=== PATIENT | male | born 1990 | race Caucasian/White ===

== ENCOUNTER 2019-12-21 23:30 | Inpatient (IN) | payer OTHER, SELFPAY ==
[2019-12-21] VITALS (17 sets, daily range): BP systolic 107–134; BP diastolic 64–88; PULSE 69–94; RESP 14–20; TEMP 36.6–37.6; O2SAT 93–97; BMI 28.3
--- NOTE | 2019-12-21 | CT_ITS ---
EXAMINATION: CT LUMBAR SPINE WITHOUT CONTRAST CLINICAL INFORMATION: Epidural abscess COMPARISON: None TECHNIQUE: Multidetector volumetric imaging of the lumbar spine performed without IV contrast. Coronal and sagittal reformatted images are obtained and reviewed. This CT examination was performed using dose optimization techniques as appropriate, variously including the following: *Automated exposure control *Adjustment of mA and/or kV according to patient size (this includes techniques or standardized protocols for targeted exams where dose is matched to indication/reason for exam; i.e. extremities or head) *Use of iterative reconstruction technique DLP; 587 mGy-cm FINDINGS: No fracture or subluxation. Vertebral body height and alignment is maintained. The disc spaces are maintained. Broad disc bulges are seen at L4-L5 and L5-S1. Associated hypertrophy of the ligamentum flavum at L4-L5 results in mild narrowing of the spinal canal. No bony neuroforaminal narrowing. Evaluation for an epidural abscess is limited on noncontrast CT. No gross evidence of epidural collection. There is stranding in the superficial soft tissues. At the midline there is a drain in place with gas present within an area of fluid. Lack of IV contrast limits evaluation for rim enhancement of a collection. This area of fluid measures 2.4 x 2.4 x 4.5 cm. This is deep to the skin, and superficial to the paraspinal musculature. Fluid does extend to near the tip of the spinous process. IMPRESSION: 1. Superficial fluid with drain in place. Gas within the area of fluid. Lack of IV contrast limits evaluation of wall enhancement. 2. Small disc bulges at L4-L5 and L5-S1. Mild spinal canal narrowing of L4-L5. 3. Limited evaluation for epidural abscess on this study. MRI is more sensitive.
--- NOTE | 2019-12-21 18:51 | FL_ITS ---
EXAMINATION: XR FLUOROSCOPY CLINICAL INFORMATION: Removal of spinal stimulator. COMPARISON: Previous exam November 2019. TECHNIQUE: Fluoroscopic guidance was provided to Dr. Weber for spinal stimulator removal. Fluoroscopy time 0.2 minutes. Cumulative dose 3.5 mg. Four submitted fluoroscopic images. FINDINGS: Four fluoroscopic images of the lower thoracic spine, lumbar spine and over the iliac crest demonstrate no foreign body. IMPRESSION: Fluoroscopic guidance for spinal stimulator removal.
--- NOTE | 2019-12-21 18:58 | HO.ANESPROP2 ---
[facility] Past Medical History Medical History (Updated 12/21/19 @ 19:05 by Desirae Menezes, RN) Abscess in epidural space of thoracic spine Mild asthma Right knee meniscal tear Spinal cord stimulator dysfunction Wound infection Surgical History Surgical History (Updated 12/21/19 @ 19:05 by Desirae Menezes, RN) Kwesi's fracture History of appendectomy History of back surgery History of incisional hernia repair Status post lumbar microdiscectomy Social History Social History Advance Directives: No Advance Directives Information Provided: No Meds Allergies Allergy/AdvReac Type Severity Reaction Status Date / Time tramadol [TRAMADOL] Allergy Unknown SEIZURE Unverified 12/02/19 19:24 transparent dressing Allergy Unknown Rash Verified 12/21/19 18:52 [Tegaderm] Home Medications Medication Instructions Recorded Confirmed Type cephalexin 500 mg capsule 1,000 mg PO Q6H 12/18/19 12/21/19 History escitalopram oxalate 5 mg tablet 5 mg PO DAILY 12/18/19 12/21/19 History hydroxyzine HCl 25 mg tablet 25 mg PO TID 12/18/19 12/21/19 History hydroxyzine HCl 50 mg tablet 50 mg PO TID 12/18/19 12/21/19 History oxycodone-acetaminophen 5 mg-325 1 tab PO QID PRN 12/18/19 12/21/19 History mg tablet paroxetine HCl 20 mg tablet 20 mg PO DAILY 12/18/19 12/21/19 History prednisone 50 mg tablet 50 mg PO DAILY 12/18/19 12/21/19 History sertraline 25 mg tablet 25 mg PO DAILY 12/18/19 12/21/19 History Exam Exam Date and Time: December 21, 2019 185 Height,Weight and Vital Signs: Height 6 ft 1 in Weight 97.522 kg Airway Mallampati Class: I TM Dist: >3cm Neck ROM: Full Heart: RRR Lungs: Cta Assessment and Plan Assessment Anesthesia Assessment: Anesthesia Plan Discussed Final Anesthetic Review NPO: Yes ASA Class: II Final Preanesthetic Review: No Changes in Pt Med Stat, Meds/Allgs Chart Reviewed, Consent Obtained/Reviewed and Anes Risks/Benef Reviewed Patient Risk: Low Procedure Risk: Low Anesthetic Plan Anesthetic Plan: GA Disposition: Standard PACU
[2019-12-21] MEDS: Lactated Ringers 1,000 ML 50 ML IVCONT (19:24)
[2019-12-21] MEDS: DAPTOmycin 500 MG/10 ML VIAL 400 MG IV (21:49)
[2019-12-21] MEDS: HYDROmorphone HCl 0.5 MG/0.5 ML SYRINGE IVPUSH ×2 (21:59→22:12)
[2019-12-21] MEDS: fentaNYL citrate/PF 100 MCG/2 ML VIAL 50 MCG IVPUSH (22:22)
[2019-12-21] MEDS: oxyCODONE HCl Immed Release 5 MG TABLET PO (22:33)
--- NOTE | 2019-12-21 23:11 | PC.NURSE ---
[address] scan via stretcher with cardiac cath rn O2 sat and [address]
[2019-12-21 23:15] LABS: MANUAL DIFF FLAG NO
[2019-12-21 23:17] LABS: Basophils Absolute Auto 0.1 X10*3/uL (0.0-0.2); Basophils Percent Auto 0.9 % (0-2); Eosinophils Absolute Auto 0.2 X10*3/uL (0.0-0.4); Eosinophils Percent Auto 3.3 % (0-4); Hematocrit 37.4 % (42-52); Hemoglobin 13.3 g/dl (14.0-18.0); Imm Gran Abs Auto 0.02 X10*3/uL (0.00-0.03); Imm Gran Pct Auto 0.3 % (0.0-0.4); Lymphocytes Absolute Auto 1.9 X10*3/uL (1.2-4.9); Lymphocytes Percent Auto 30.2 % (20-40); Mean Corpuscular HGB Conc 35.6 g/dl (31.0-36.0); Mean Corpuscular Hemoglobin 31.1 pg (27.0-33.0); Mean Corpuscular Volume 87.6 fL (80-98); Mean Platelet Volume 9.8 fL (9.4-12.4); Monocytes Absolute Auto 0.5 X10*3/uL (0.1-1.2); Monocytes Percent Auto 8.4 % (2-11); Neutrophils Absolute Auto 3.7 X10*3/uL (2.0-8.3); Neutrophils Percent Auto 56.9 % (45-73); Platelet Count 217 X10*3/uL (160-400); Red Blood Count 4.27 X10*6/uL (4.60-5.80); Red Cell Distribution Width 11.3 % (11.0-16.0); White Blood Count 6.4 X10*3/uL (4.8-10.8)
--- NOTE | 2019-12-22 | CT_ITS ---
EXAMINATION: CT THORACIC SPINE CLINICAL INFORMATION: Post removal of lpn medical assistant. Evaluate for abscess. COMPARISON: Previous fluoroscopic exam 11/26/2019 and 12/21/2019 TECHNIQUE: Axial images through the thoracic spine following 85 mL of Omnipaque 350 intravenous contrast. Sagittal and coronal re-tractions on the technologist workstation were performed. Patient dose 108 3 mg/cm. This CT examination was performed using dose optimization techniques as appropriate, variously including the following: *Automated exposure control *Adjustment of mA and/or kV according to patient size (this includes techniques or standardized protocols for targeted exams where dose is matched to indication/reason for exam; i.e. extremities or head) *Use of iterative reconstruction technique DLP: 1083 mGy-cm FINDINGS: Bone alignment is normal. No fracture or dislocation is seen. No x-ray evidence of osteomyelitis is seen. No disc herniation is seen. No evidence of an epidural abscess is seen. There is a drain in the subcutaneous fat adjacent to the L2 and L3 spinous process. There is a small amount of fluid and air. This is similar to lumbar spine CT from yesterday. There is elevation of the right hemidiaphragm. There is subsegmental atelectasis in the right upper lobe. Paraspinal soft tissues are otherwise unremarkable. IMPRESSION: No abscess seen. Stable appearance to the superficial fluid collection and drain adjacent to the L2 and L3 spinous process.
[2019-12-22 00:02] VITALS: BP 130/80; PULSE 70; RESP 20; TEMP 36.7; O2SAT 95
--- NOTE | 2019-12-22 00:17 | P.HPIM_ITS ---
History of Present Illness Date of Service: 12/21/19 Chief Complaint: Infected spinal cord stimulator 29 y/o male with PMHx of pain related to degenerative disc disease and post- laminectomy syndrome who presented from home due to pain of spinal cord stimulator implantation site pain. On 11/25 patient reports that had implantation of spinal cord stimulator for chronic pain due to generative disc and since then everything was okay until on recent days when started experiencing bulging, discharge and pain from implantation site. Patient denies any chest pain, SOB, nausea, vomiting or fever. Patient contacted Surgeon Dr Weber who recommneded for spinal cord stimulator to be removed in the OR today at 7 pm given infection. Patient on evaluation by surgery did not present with any evidence of neurologic deficit, spinal cord stimulator was removed successfully. CT was done for evaluation of spinal canal which did not elucidate any specific finding concerning for epidural absces/canal involvement for what MRI was recommended. Medicine was called for direct admission to medical floor. Patient was seen and evaluated in IMC after transferred. Patient laying down in bed in no acute distress. ROS as above otherwise negative. Physical exam showing bandage on surgery site, rest of the exam unremarkable. No neurologic deficit indentified at present. PMHX: degenerative disc, post laminectomy and spinal cord stimulator PSx: as above Toxic habits: gives no hx of alcohol abuse, smoking or IVDA Review of Systems Musculoskeletal: Musculoskeletal: Reports back pain Integumentary/Breasts: Skin/Breast: Reports other (open wound with drainage and buldging of skin ) PMFSH Medical History Abscess in epidural space of thoracic spine Mild asthma Right knee meniscal tear Spinal cord stimulator dysfunction Wound infection Functional capacity: independent ambulation Family history: reviewed and not pertinent Surgical History Boxer's fracture History of appendectomy History of back surgery History of incisional hernia repair Status post lumbar microdiscectomy Social History Household Members: Spouse and Children Housing: House Do you presently have visiting nurse or other home services: No Smoking Status: Former smoker Smoked in Last 30 Days: No Use of substances other than those prescribed or required for medical reasons: No Have you been hit, kicked, punched, or otherwise hurt by someone within the past year? If so, by whom?: No Do you feel safe in your current relationship?: No Is there a partner from a previous relationship who is making you feel unsafe now?: No Are you made to feel afraid or neglected: No Advance Directives: No Advance Directives Information Provided: No Advance Directives on File: No Do you have thoughts of harming others: None Recently lost weight without trying: No Meds Allergies Allergy/AdvReac Type Severity Reaction Status Date / Time tramadol [TRAMADOL] Allergy Unknown SEIZURE Verified 12/21/19 19:23 transparent dressing Allergy Unknown Rash Verified 12/21/19 18:52 [Tegaderm] Home Medications Medication Instructions Recorded Confirmed Type cephalexin 500 mg capsule 1,000 mg PO Q6H 12/18/19 12/21/19 History escitalopram oxalate 5 mg tablet 5 mg PO DAILY 12/18/19 12/21/19 History hydroxyzine HCl 25 mg tablet 25 mg PO TID 12/18/19 12/21/19 History hydroxyzine HCl 50 mg tablet 50 mg PO TID 12/18/19 12/21/19 History oxycodone-acetaminophen 5 mg-325 1 tab PO QID PRN 12/18/19 12/21/19 History mg tablet paroxetine HCl 20 mg tablet 20 mg PO DAILY 12/18/19 12/21/19 History prednisone 50 mg tablet 50 mg PO DAILY 12/18/19 12/21/19 History sertraline 25 mg tablet 25 mg PO DAILY 12/18/19 12/21/19 History Physical Exam Vital Signs and Narrative: Vital Signs: Last Vital Signs Temp 98.7 F 12/21/19 23:05 Pulse 76 12/21/19 23:35 Resp 16 12/21/19 23:35 BP 124/82 12/21/19 23:35 Pulse Ox 96 12/21/19 23:35 Body Mass Index 28.3 Results Labs Labs: Laboratory Tests 12/21/19 23:11 WBC 6.4 RBC 4.27 L Hgb 13.3 L Hct 37.4 L MCV 87.6 MCH 31.1 MCHC 35.6 RDW 11.3 Plt Count 217 MPV 9.8 Immature Gran % (Auto) 0.3 Neut % (Auto) 56.9 Lymph % (Auto) 30.2 [place] % (Auto) 8.4 Eos % (Auto) 3.3 Baso % (Auto) 0.9 Neut # (Auto) 3.7 Lymph # (Auto) 1.9 [place] # (Auto) 0.5 Eos # (Auto) 0.2 Baso # (Auto) 0.1 Abs Immat Gran (auto) 0.02 Absolute Nucleated RBC 0.000 Nucleated RBC % (auto) 0.0 Assessment and Plan (1) Infection of spinal cord stimulator: Status: Acute s/p removal of infected spinal cord stimulator Pain control regular diet sequential compression devices LE for DVT ppx Continue with Daptomycin as recommended by Dr Weber General surgery for follow up after device removal
[2019-12-22] MEDS: HYDROmorphone HCl 0.5 MG/0.5 ML SYRINGE IVPUSH ×2 (01:54→05:48)
[2019-12-22] MEDS: Flu Vacc QS2020-21(6mos up)/PF 0.5 ML SYRINGE IM (01:55)
[2019-12-22] MEDS: 0.9 % Sodium Chloride Flush 3 ML SYRINGE 2 ML IVFLUSH ×3 (01:56→23:56)
[2019-12-22 04:00] VITALS: BP 115/63; PULSE 69; RESP 18; TEMP 36.6; O2SAT 95
[2019-12-22 06:37] LABS: MANUAL DIFF FLAG NO
[2019-12-22 06:51] LABS: Basophils Absolute Auto 0.1 X10*3/uL (0.0-0.2); Basophils Percent Auto 1.2 % (0-2); Eosinophils Absolute Auto 0.3 X10*3/uL (0.0-0.4); Eosinophils Percent Auto 4.3 % (0-4); Hematocrit 35.6 % (42-52); Hemoglobin 12.8 g/dl (14.0-18.0); Imm Gran Abs Auto 0.03 X10*3/uL (0.00-0.03); Imm Gran Pct Auto 0.4 % (0.0-0.4); Lymphocytes Absolute Auto 2.4 X10*3/uL (1.2-4.9); Mean Corpuscular Hemoglobin 31.4 pg (27.0-33.0); Mean Corpuscular Volume 87.5 fL (80-98); Mean Platelet Volume 10.5 fL (9.4-12.4); Monocytes Absolute Auto 0.7 X10*3/uL (0.1-1.2); Monocytes Percent Auto 9.1 % (2-11); Platelet Count 226 X10*3/uL (160-400); Red Blood Count 4.07 X10*6/uL (4.60-5.80); Red Cell Distribution Width 11.2 % (11.0-16.0); White Blood Count 7.5 X10*3/uL (4.8-10.8)
[2019-12-22 07:20] LABS: Anion Gap 11 (12-20); Blood Urea Nitrogen 18 mg/dL (9-16); Calcium 8.6 mg/dL (8.4-10.2); Carbon Dioxide 26 mmol/L (22-29); Chloride 106 mmol/L (96-108); Creatinine Clr Calc Pharmacy 135.4; Estimated Glomerular Filt Rate > 60; Glucose Random 86 mg/dL (60-115); Potassium 3.6 mmol/l (3.3-5.1); Sodium 139 mmol/L (135-145)
[2019-12-22 07:46] VITALS: BP 107/59; PULSE 70; RESP 18; TEMP 36.6; O2SAT 97
--- NOTE | 2019-12-22 09:32 | MHC.CM.PN ---
CM met with patient at the bedside who reports he is independent and lives with his S.O. Patient does not have a HCP and declines to fill one out today. Discussed discharge plan, home no services. S.O. will provide transportation. CM will continue to follow patient for discharge needs.
[2019-12-22] MEDS: Morphine Sulfate 2 MG/ML CARTRIDGE IVPUSH ×3 (10:22→21:37)
[2019-12-22] MEDS: iohexoL 350 MG/ML 100 ML INFUS..BTL IV (11:21)
[2019-12-22 11:42] VITALS: BP 113/71; PULSE 79; RESP 18; TEMP 36.6; O2SAT 98
[2019-12-22] MEDS: oxyCODONE HCl Immed Release 5 MG TABLET PO ×3 (12:21→22:28)
--- NOTE | 2019-12-22 13:55 | P.CNID_ITS ---
History of Present Illness Data of Consult Primary Care Provider: Elfego Hernández MD I am seeing patient on 12/21 He presents to hospital after back discomfort He has h/o chronic back pain post laminectomy DJD On 11/25 he received spinal cord stimulator He did well except for pain until 12/08 when noticed incision reopened He started to have serosanguinous drainage over next week and came to ER He has no fever or chills at this time and no purulence Review of Systems Review of Systems: Yes all other systems are reviewed and are negative Constitutional: Constitutional: Denies frequent falls and Reports weakness Musculoskeletal: Musculoskeletal: Denies numbness and Denies tingling Neurologic: Denies confusion, Denies frequent falls, Denies memory loss, Denies numbness, Reports radicular pain, Denies seizure-like activity, Denies tingling, Denies paresthesias, Denies tremor(s) and Reports weakness Psychiatric: Psychiatric: Denies confusion and Denies memory loss PMFSH Past Medical History Medical History Abscess in epidural space of thoracic spine Mild asthma Right knee meniscal tear Spinal cord stimulator dysfunction Wound infection Functional capacity: independent ambulation Family History Family history: reviewed and not pertinent Surgical History Surgical History Boxer's fracture History of appendectomy History of back surgery History of incisional hernia repair Status post lumbar microdiscectomy Social History Social History Household Members: Spouse and Children Housing: House Do you presently have visiting nurse or other home services: No Smoking Status: Former smoker Smoked in Last 30 Days: No Use of substances other than those prescribed or required for medical reasons: No Have you been hit, kicked, punched, or otherwise hurt by someone within the past year? If so, by whom?: No Do you feel safe in your current relationship?: No Is there a partner from a previous relationship who is making you feel unsafe now?: No Are you made to feel afraid or neglected: No Advance Directives: No Advance Directives Information Provided: No Advance Directives on File: No Do you have thoughts of harming others: None Recently lost weight without trying: No service: No Current occupational status: unemployed Meds Allergies Allergy/AdvReac Type Severity Reaction Status Date / Time tramadol [TRAMADOL] Allergy Unknown SEIZURE Verified 12/21/19 19:23 transparent dressing Allergy Unknown Rash Verified 12/21/19 18:52 [Tegaderm] Home Medications Medication Instructions Recorded Confirmed Type cephalexin 500 mg capsule 1,000 mg PO Q6H 12/18/19 12/22/19 History escitalopram oxalate 5 mg tablet 5 mg PO DAILY 12/18/19 12/22/19 History hydroxyzine HCl 25 mg tablet 25 mg PO TID 12/18/19 12/22/19 History hydroxyzine HCl 50 mg tablet 50 mg PO TID 12/18/19 12/22/19 History oxycodone-acetaminophen 5 mg-325 1 tab PO QID PRN 12/18/19 12/22/19 History mg tablet paroxetine HCl 20 mg tablet 20 mg PO DAILY 12/18/19 12/22/19 History prednisone 50 mg tablet 50 mg PO DAILY 12/18/19 12/22/19 History sertraline 25 mg tablet 25 mg PO DAILY 12/18/19 12/22/19 History Physical Exam Vital Signs and I&O and Narrative: Vital Signs and I&O: Vital Signs Temp 97.9 F 12/22/19 11:42 Pulse 79 12/22/19 11:42 Resp 18 12/22/19 11:42 BP 113/71 12/22/19 11:42 Pulse Ox 98 12/22/19 11:42 Intake & Output 12/21/19 12/22/19 12/22/19 18:59 06:59 18:59 Intake Total 750 / 750 180 / 180 Output Total 5 / 5 Balance 745 / 745 180 / 180 Urine Output (Aver age ml/kg/hr) 0.00 0.00 Weight 215 lb Intake: Intake, Oral [place] unt 300 / 300 180 / 180 Intake, Other Am ount 350 / 350 Intake, IV Amoun t 100 / 100 Acetaminophen 1,000 mg In 100 100 / 100 ml @ 400 mls/h r IV ONCE ONE Rx# :[id number] Output: Output, Urine Am ount 0 / 0 Output, Tube [place] unt 5 / 5 PEREZ Drain 5 / 5 Other: NPO Yes Breakfast % Eate n 50% Current Medications Generic Name Dose Route Start Last Admin Trade Name Freq PRN Reason Stop Dose Admin Lactated Ringer's 1,000 mls @ 50 ml s/hr 12/21/19 19:15 12/21/19 19:24 Lr IVCONT 50 mls/hr .Q20H PRANAV Administration Daptomycin 390.088 mg/ Sodium 57.8018 mls @ 100 mls/hr 12/22/19 19:00 Chloride IV Q24H PRANAV Morphine Sulfate 2 mg 12/22/19 09:58 12/22/19 10:22 Morphine Sulfate 2 Mg/Ml Cartridge IVPUSH 2 mg Q4H PRN Administration Pain and Fever Ondansetron HCl 4 mg 12/21/19 19:02 Ondansetron Hcl 4 Mg/2 Ml Vial IVPUSH ONCE PRN Nausea and Vomiti ng Oxycodone HCl 5 mg 12/22/19 11:38 12/22/19 12:21 Oxycodone Hcl Im med Release 5 Mg T ablet PO 5 mg Q4H PRN Administration Pain, Severe (Nate n Scale 7-10) Sodium Chloride 2 ml 12/22/19 08:00 12/22/19 01:56 0.9 % Sodium Chl oride Flush 3 Ml S yringe IVFLUSH 2 ml QSHIFT PRANAV Administration Body Mass Index 28.3 Const: General: No confusion Orientation/consciousness: No confusion HENMT: Head: Yes normal to inspection Eyes: General: appearance normal, both eyes and all related structures Resp: Effort & Inspection: normal respiratory effort Cardio: Rate: regular rate Rhythm: regular rhythm GI: Inspection: Yes normal to inspection Percussion: Yes normal to percussion Back/Spine/Pelvis: Back/spine/pelvis image: 1. serosanguinous drainage with drain Neuro: General: No confusion Assessment and Plan (1) Epidural abscess: Problem details: There is serosanguinous drainage and need to culture see if abscess Status: Acute (2) Infection of spinal cord stimulator: Problem details: There appears to be dehiscence area and drain Patient is tolerating Daptomycin well Status: Acute Would switch to po Minocycline There are no wound cultures available and CT LS spine shows no osteomyelitis so would give po Minocycline for 14 days cover staph and strep If area fails to heal, schedule open MRI evaluate osteomyelitis as outpatient Patient is claustrophobic and declines MRI at this time (3) Post-operative wound abscess: Status: Acute (4) Wound infection: Status: Acute
--- NOTE | 2019-12-22 15:24 | HO.PM.IMPN ---
Subjective Subjective Date of Service: 12/22/19 Interval History: Seen in follow up for concern of epidural abscess from an implanted neurostimulator. He underwent emergent surgical removal of the device yesterday and has a drain in place with serosanguinuous drainage. Has not have fever or chils and WBC are nomra. He says he has some chronic numbnes of right lower extremity for years that has not change and perhaps may have some numbness on the left but nearly gone since removal of device overnight. He has no urniary or stool incontinence, he is ambulating without any difficulty Review of Systems Gen:No fever CV: no ches pain Resp: no fever Neuro: no weakness, no numbness, no urinary or stool incontinence Physical Exam Vital Signs and I&O and Narrative: Vital Signs and I&O: Vital Signs Temp 97.9 F 12/22/19 11:42 Pulse 79 12/22/19 11:42 Resp 18 12/22/19 11:42 BP 113/71 12/22/19 11:42 Pulse Ox 98 12/22/19 11:42 Intake & Output 12/21/19 12/22/19 12/22/19 18:59 06:59 18:59 Intake Total 750 / 750 400 / 400 Output Total 5 / 5 400 / 400 Balance 745 / 745 0 / 0 Urine Output (Aver age ml/kg/hr) 0.00 0.34 Weight 97.522 kg Intake: Intake, Oral [place] unt 300 / 300 400 / 400 Intake, Other Am ount 350 / 350 Intake, IV Amoun t 100 / 100 Acetaminophen 1,000 mg In 100 100 / 100 ml @ 400 mls/h r IV ONCE ONE Rx# :[id number] Output: Output, Urine Am ount 0 / 0 400 / 400 Output, Tube [place] unt 5 / 5 PEREZ Drain 5 / 5 Other: NPO Yes Breakfast % Eate n 50% Lunch % Eaten 75% Urine Bathroom Body Mass Index 28.3 Constitutional Awake and Alert, No apparent distress, no distress Neck Supple, No lymphadenopathy Cardiovascular RRR, Resp normal lung expansion, no respiratory effort Gastrointestinal Non tender, Non-distended Skin No rash, the wounds in back were examined. suttures in place wound looks clean with drain in place, no surrounding erythema Neurological Alert & oriented x3, he has normal strenght in upper and lower extremity, no tingle in legs, no hypereflexia, normal coordination, and normal gait Psychological Appropriate affect Objective Data Current Medications Generic Name Dose Route Start Last Admin Trade Name Freq PRN Reason Stop Dose Admin Lactated Ringer's 1,000 mls @ 50 mls/hr 12/21/19 19:15 12/21/19 19:24 Lr IVCONT 50 mls/hr .Q20H [facility] Administration Daptomycin 585 mg/ Sodium 61.7 mls @ 123.4 mls/hr 12/22/19 20:00 Chloride IV Q24H [facility] Morphine Sulfate 2 mg 12/22/19 09:58 12/22/19 14:54 Morphine Sulfate 2 Mg/Ml Cartridge IVPUSH 2 mg Q4H PRN Administration Pain and Fever Ondansetron HCl 4 mg 12/21/19 19:02 Ondansetron Hcl 4 Mg/2 Ml Vial IVPUSH ONCE PRN Nausea and Vomiting Oxycodone HCl 5 mg 12/22/19 11:38 12/22/19 12:21 Oxycodone Hcl Immed Release 5 Mg Tablet PO 5 mg Q4H PRN Administration Pain, Severe (Pain Scale 7-10) Sodium Chloride 2 ml 12/22/19 08:00 12/22/19 01:56 0.9 % Sodium Chloride Flush 3 Ml Syringe IVFLUSH 2 ml QSHIFT [facility] Administration Labs CBC & Chem 7: 12/22/19 05:51 12/22/19 05:51 Labs: Laboratory Results - last 24 hr 12/21/19 12/22/19 12/22/19 23:11 05:51 05:51 MCV 87.6 87.5 MCH 31.1 31.4 MCHC 35.6 36.0 RDW 11.3 11.2 Plt Count 217 226 MPV 9.8 10.5 Immature Gran % (Auto) 0.3 0.4 Neut % (Auto) 56.9 53.0 Lymph % (Auto) 30.2 32.0 [place] % (Auto) 8.4 9.1 Eos % (Auto) 3.3 4.3 H Baso % (Auto) 0.9 1.2 Neut # (Auto) 3.7 4.0 Lymph # (Auto) 1.9 2.4 [place] # (Auto) 0.5 0.7 Eos # (Auto) 0.2 0.3 Baso # (Auto) 0.1 0.1 Abs Immat Gran (auto) 0.02 0.03 Absolute Nucleated RBC 0.000 0.000 Nucleated RBC % (auto) 0.0 0.0 Anion Gap 11 L Estim Creat Clear Calc 135.4 Estimated GFR > 60 Random Glucose 86 Calcium 8.6 Microbiology Microbiology Results: Microbiology 12/21/19 20:47 Not Given, Tbd - Other Routine Culture - Preliminary Culture too young to evaluate. 12/21/19 20:42 Not Given, Tbd - Other Routine Culture - Preliminary No growth to date. 12/21/19 16:00 Incision Routine Culture - Preliminary Culture too young to evaluate. Assessment and Plan (1) Infection of spinal cord stimulator: Problem details: There appears to be dehiscence area and drain Patient is tolerating Daptomycin well Status: Acute (2) Post-operative wound abscess: Status: Acute (3) Abscess in epidural space of thoracic spine: Status: Acute Assessment and Plan: 29 year male with chronic back who has a recent Spinal cord Simulator inserted presented post operative wound infection and concern for epidural abscess and s/p removal of the spinal cord stimulator and battery. He is clinically doing better. Has no feve or increase in WBC, his neuro exam is uremarkable including abscence of tingling he had yesterday. CT of back shows no evidence of abscess. We proposed MRI further evaluation but he relates that he cannot tolerate MRI even with sedation and infact would not be open for open MRI..She is on Daptomycin and will add Minocyline that he maybe able to go home with later per ID guidance
[2019-12-22 16:00] VITALS: BP 111/62; PULSE 70; RESP 18; TEMP 36.9; O2SAT 100
--- NOTE | 2019-12-22 17:51 | P.OP_ITS ---
Operative Note Operative Note Narrative: Dusty is very pleasant 29 years old gentleman who is under care in my office for Complex regional pain syndrome of right lower extremity. He underwent implantation of the spinal cord stimulator [employer] to to treat this condition. In postoperative time he developed inflammation surrounding his battery site , severe pain in the projection of the battery site redness and swelling in the projection of the battery side. He also reported inflammation and some minimal discharge from the midline epidural lead incisions later on on 12/21/2019. At the same time he reported severe pain in the projections of both incisions, severe tenderness on palpation, and on December 22 2019 he reported weakness in tingling sensation in bilateral lower extremities. Epidural involvement in the inflammation was suspected. Epidural abscess diagnosis was entered as a tentative diagnosis for this patient. The decision was made to take the patient to the operating room for removal of the battery and epidural leads. Informed consent was obtained for the procedure before surgery and all the risks and benefits were explained to the patient. All the questions were answered. HE was brought to the operating room and positioned supine on the stretcher.General anesthesia was induced and the patient was inserted with LMA. he was positioned prone on the operating table, all pressure points were protected, padded. Time out was performed delineation correct patient with identifier, correct site and side of the surgery, risk of fire, needs for antibiotics and DVT prophylactics. After that the patient entire back was prepped with chloroprep twice and draped with fool body drape including ioban film. Sterilely drape C-arm was brought over the OR field and square pictures of the L1, L2, L3 vertebrae were demonstrated on the screen, the positions of the patient SCS leads were noted. After that the incision was performed in the projection of the previously healed midline incision scar. Thorough hemostasis was obtained and wheatlander wound retractor was applied. The location of previously position anchors containing epidural leads was palpated through the tissues. C-arm was used to locate Left-sided lead. The leads were freed from surrounding tissues using dull dissection with hemostat a and sharp dissection with Metzenbaum scissors. The anchoring sutures were severed and epidural leads were slowly delivered from the epidural space to the midline incision. The tips of the leads were severed from the rest of the lead and were sent for culture. Previously applied wound closure materials including all the sutures were carefully removed from the wound. Thorough irrigation of the wound was performed and wound was packed with normal saline soaked 4x4s. After that attention was concentrated on the left-sided incision where a scalpel was used to open up the side pocket the battery was located in the pocket. The battery was removed after severing the anchoring sutures. Irrigation was performed and Jordan-Rosenbaum drain was inserted into the pocket wound. Previously applied suture materials were carefully removed from the wound. The Pastor drain was inserted into the midline incision. 0 silk vertical mattress sutures were applied to midline incision and rare thom were applied as well. The same closure was performed for left-sided incision. The Jordan-Rosenbaum drain was fixed with the nylon suture 2-[address] to the [address]. sterile dr essings was applied with hypo allergenic tape. Upon completion of the procedure the patient was awaken and extubated. He was taking to the PACU for recovery he was admitted to the hospital for hospitalist care. He received Cubicin 400 mg intravenously for potential epidural abscess prophylaxis. He was also scheduled to have a CT scan with contrast of the thoracic spine. He will be consulted by infectious Diseases specialist. The cultures will be evaluated as well. Postoperative diagnosis still includes differential options of indolent infection versus titanium and/or suture material allergy. He will be under neuro check while in the hospital.
[2019-12-22 20:00] VITALS: BP 110/59; PULSE 79; RESP 18; TEMP 36.4; O2SAT 98
[2019-12-22] MEDS: Acetaminophen 325 MG TABLET 650 MG PO (23:54)
[2019-12-23] VITALS (8 sets, daily range): BP systolic 99–134; BP diastolic 50–79; PULSE 60–113; RESP 16–18; TEMP 35.9–37.1; O2SAT 95–98
[2019-12-23] MEDS: Morphine Sulfate 2 MG/ML CARTRIDGE IVPUSH ×3 (03:20→23:52)
[2019-12-23] MEDS: oxyCODONE HCl Immed Release 5 MG TABLET PO ×3 (05:08→20:34)
[2019-12-23] MEDS: 0.9 % Sodium Chloride Flush 3 ML SYRINGE 2 ML IVFLUSH ×3 (08:27→23:42)
--- NOTE | 2019-12-23 13:53 | P.PNIM_ITS ---
Subjective Subjective Date of Service: 12/23/19 Interval History: Seen in follow up for concern of epidural wound infection from an implanted neurostimulator. He underwent emergent surgical removal of the device on 12/20 and has a drain in place with serosanguinuous drainage. Has not have fever or chils and WBC are normal. He says he has some chronic numbnes of right lower extremity for years that has not change and perhaps may have some numbness on the left but nearly gone since removal of device . He has no urniary or stool incontinence, he is ambulating without any difficulty. Wound culture is growing Staph Aurues, sensitivity pending Review of Systems Card: no chest pain GI: No n/v Muscular/sk: No back pain Neuro: no weakness, no new numbness Physical Exam Vital Signs and I&O and Narrative: Vital Signs and I&O: Vital Signs Temp 97.5 F 12/23/19 11:19 Pulse 70 12/23/19 11:19 Resp 16 12/23/19 11:19 BP 107/56 L 12/23/19 11:19 Pulse Ox 95 12/23/19 11:19 Intake & Output 12/22/19 12/23/19 12/23/19 18:59 06:59 18:59 Intake Total 400 / 2041.7 1641.7 / 2041.7 Output Total 400 / 660 260 / 660 Balance 0 / 1381.7 1381.7 / 1381.7 Urine Output (Aver age ml/kg/hr) 0.34 0.21 Intake: Intake, Oral Jian unt 400 / 980 580 / 980 Intake, IV Amoun t 1061.7 / 1061.7 DAPTOmycin 585 mg In 0.9 % 61.7 / 61.7 Sodium Chlorid e 50 ml @ 123.4 mls/hr IV Q24H [facility] Rx#: [id number] Lactated Ringe rs 1,000 ml @ 50 1000 / 1000 mls/hr IVCONT .Q20H [facility] Rx#: [id number] Output: Output, Urine Am ount 400 / 650 250 / 650 Output, Tube [place] unt PEREZ Drain Other: Breakfast % Eate n 50% Lunch % Eaten 75% Urine Bathroom Bathroom Urine Color Yellow Body Mass Index 28.3 Constitutional Awake and Alert, No apparent distress, no distress Neck Supple, No lymphadenopathy Cardiovascular RRR, Resp normal lung expansion, no respiratory effort Gastrointestinal Non tender, Non-distended Skin No rash, the wounds in back were examined. suttures in place wound looks clean with drain in place, no surrounding erythema Neurological Alert & oriented x3, he has normal strenght in upper and lower extremity, no tingle in legs, no hypereflexia, normal coordination, and normal gait Psychological Appropriate affect Objective Data Current Medications Generic Name Dose Route Start Last Admin Trade Name Selvinq PRN Reason Stop Dose Admin Doxycycline Hyclate 100 mg 12/22/19 23:00 12/23/19 08:25 Doxycycline Hyclate 100 Mg Tablet PO 100 mg BID [facility] Administration Lactated Ringer's 1,000 mls @ 50 mls/hr 12/21/19 19:15 12/23/19 13:09 Lr IVCONT Not Given .Q20H [facility] Daptomycin 585 mg/ Sodium 61.7 mls @ 123.4 mls/hr 12/22/19 20:00 12/22/19 22:07 Chloride IV Infused Q24H [facility] Infusion Vancomycin HCl 1,000 mg/ 270 mls @ 180 mls/hr 12/23/19 14:00 Sodium Chloride IV Q12H [facility] Morphine Sulfate 2 mg 12/22/19 09:58 12/23/19 08:24 Morphine Sulfate 2 Mg/Ml Cartridge IVPUSH 2 mg Q4H PRN Administration Pain and Fever Ondansetron HCl 4 mg 12/21/19 19:02 Ondansetron Hcl 4 Mg/2 Ml Vial IVPUSH ONCE PRN Nausea and Vomiting Oxycodone HCl 5 mg 12/22/19 11:38 12/23/19 10:40 Oxycodone Hcl Immed Release 5 Mg Tablet PO 5 mg Q4H PRN Administration Pain, Severe (Pain Scale 7-10) Sodium Chloride 2 ml 12/22/19 08:00 12/23/19 08:27 0.9 % Sodium Chloride Flush 3 Ml Syringe IVFLUSH 2 ml QSHIFT [facility] Administration Labs CBC & Chem 7: 12/22/19 05:51 12/22/19 05:51 Microbiology Microbiology Results: Microbiology 12/21/19 20:42 Not Given, Tbd - Other Gram Stain - Final 12/21/19 20:42 Not Given, Tbd - Other Routine Culture - Final No growth after 2 days 12/21/19 16:00 Incision Gram Stain - Final 12/21/19 16:00 Incision Routine Culture - Preliminary Staphylococcus aureus 12/21/19 20:47 Not Given, Tbd - Other Routine Culture - Preliminary Staphylococcus aureus Assessment and Plan (1) Infection of spinal cord stimulator: Problem details: There appears to be dehiscence area and drain Patient is tolerating Daptomycin well Status: Acute (2) Post-operative wound abscess: Status: Acute (3) Abscess in epidural space of thoracic spine: Status: Acute Assessment and Plan: 29 year male with chronic back who has a recent Spinal cord Simulator inserted around 11/25 presented post operative wound infection and concern for epidural absces and s/p removal of the spinal cord stimulator and battery. Has no feve or increase in WBC, his neuro exam is uremarkable including abscence of tingling he had yesterday. CT of back after surgery showed no evidence of abscess. We proposed MRI for further evaluation but he relates that he cannot tolerate MRI even with sedation and infact would not be open for open MRI. He has been on Daptomycin, culture from battery site in buttocs and wire site in thoracic spine temo growing Staph Aurues, no sensitivity yet. Will continue Daptomycin for now and wait for culture to come back. Surgeon to follow up. At any singn of detelioration MRI with anesthesia sedation should be considered
--- NOTE | 2019-12-23 13:54 | MHC.CM.PN ---
Patient is being discharged home today no services. S.O. will provide transport.
[2019-12-23 16:07] LABS: Vancomycin Trough < 3.0 mcg/mL (10.0-20.0)
[2019-12-23] MEDS: Lactated Ringers 1,000 ML 50 ML IVCONT (22:20)
[2019-12-24] VITALS (9 sets, daily range): BP systolic 102–142; BP diastolic 57–71; PULSE 66–90; RESP 16–19; TEMP 36.4–36.7; O2SAT 95–99
[2019-12-24] MEDS: oxyCODONE HCl Immed Release 5 MG TABLET PO ×4 (00:47→20:37)
[2019-12-24 07:01] LABS: Hemoglobin 14.6 g/dl (14.0-18.0); Mean Corpuscular HGB Conc 34.8 g/dl (31.0-36.0); Mean Corpuscular Hemoglobin 31.1 pg (27.0-33.0); Mean Corpuscular Volume 89.4 fL (80-98); Mean Platelet Volume 10.2 fL (9.4-12.4); Platelet Count 231 X10*3/uL (160-400); Red Cell Distribution Width 11.1 % (11.0-16.0); White Blood Count 8.1 X10*3/uL (4.8-10.8)
[2019-12-24 07:26] LABS: Anion Gap 11 (12-20); Blood Urea Nitrogen 22 mg/dL (9-16); Calcium 9.3 mg/dL (8.4-10.2); Carbon Dioxide 29 mmol/L (22-29); Chloride 104 mmol/L (96-108); Creatinine Clr Calc Pharmacy 131.4; Estimated Glomerular Filt Rate > 60; Glucose Random 94 mg/dL (60-115); Potassium 4.3 mmol/l (3.3-5.1); Sodium 140 mmol/L (135-145)
--- NOTE | 2019-12-24 08:53 | MHC.CM.PN ---
Patient will be discharged home today no services,S[facility]O. will provide transport. Patient's PCP is Dr Jose Lindsey.
--- NOTE | 2019-12-24 10:28 | P.PNIM_ITS ---
Subjective Subjective Date of Service: 12/24/19 Interval History: Seen in follow up for concern of epidural wound infection from an implanted neurostimulator. He underwent emergent surgical removal of the device on 12/20 and has a drain in place with serosanguinuous drainage. Has not have fever or chils and WBC are normal. tip of catheter and wound culture are growing staph Aureus with no sensitivity as of yet. There is no fever. He still has back pain but not worse and radiation. No numbness in the leg, no weakness, no urinary or stool incontinence Review of Systems Gen: no fever Muscular/sk: back pain GI/: no urinary or stool incontinence Neuro: no weakness, no new numbness, no tingle Physical Exam Vital Signs and I&O and Narrative: Vital Signs and I&O: Vital Signs Temp 97.5 F 12/24/19 07:28 Pulse 66 12/24/19 07:28 Resp 18 12/24/19 07:28 BP 106/57 L 12/24/19 07:28 Pulse Ox 97 12/24/19 07:28 Intake & Output 12/23/19 12/24/19 12/24/19 18:59 06:59 18:59 Intake Total 120 / 661.7 541.7 / 661.7 1240 / 1240 Output Total 2 204 202 / 204 Balance 118 / 457.7 339.7 / 457.7 1240 / 1240 Urine Output (Aver age ml/kg/hr) 0.17 0.17 Intake: Intake, Oral Jian unt 120 / 600 480 / 600 240 / 240 Intake, IV Amoun t 61.7 / 61.7 1000 / 1000 DAPTOmycin 585 mg In 0.9 % 61.7 / 61.7 Sodium Chlorid e 50 ml @ 123.4 mls/hr IV Q24H [facility] Rx#: [id number] Lactated Ringe rs 1,000 ml @ 50 1000 / 1000 mls/hr IVCONT .Q20H [facility] Rx#: [id number] Output: Output, Urine Am ount 200 / 200 Output, Tube [place] unt PEREZ Drain Other: Meal Refused No NPO No Breakfast % Eate n 75% Dinner % Eaten 100% Urine Urinal Urine Color Yellow Body Mass Index 28.3 Constitutional Awake and Alert, No apparent distress, no distress Neck Supple, No lymphadenopathy Cardiovascular RRR, Resp normal lung expansion, no respiratory effort Gastrointestinal Non tender, Non-distended Skin No rash, the wounds in back were examined. suttures in place wound looks c lean with drain in place, no surrounding erythema Neurological Alert & oriented x3, he has normal strenght in upper and lower extremity, no tingle in legs, no hypereflexia, normal coordination, and normal gait Psychological Appropriate affect Objective Data Current Medications Generic Name Dose Route Start Last Admin Trade Name Freq PRN Reason Stop Dose Admin Daptomycin 585 mg/ Sodium 61.7 mls @ 123.4 mls/hr 12/23/19 20:00 12/23/19 21:44 Chloride IV Infused Q24H [facility] Infusion Morphine Sulfate 4 mg 12/24/19 08:34 Morphine Sulfate 2 Mg/Ml Cartridge IVPUSH Q4H PRN Pain and Fever Ondansetron HCl 4 mg 12/21/19 19:02 Ondansetron Hcl 4 Mg/2 Ml Vial IVPUSH ONCE PRN Nausea and Vomiting Oxycodone HCl 5 mg 12/22/19 11:38 12/24/19 00:47 Oxycodone Hcl Immed Release 5 Mg Tablet PO 5 mg Q4H PRN Administration Pain, Severe (Pain Scale 7-10) Sodium Chloride 2 ml 12/22/19 08:00 12/23/19 23:42 0.9 % Sodium Chloride Flush 3 Ml Syringe IVFLUSH 2 ml QSHIFT [facility] Administration Labs CBC & Chem 7: 12/24/19 06:04 12/24/19 06:04 Microbiology Microbiology Results: Microbiology 12/21/19 20:47 Not Given, Tbd - Other Gram Stain - Final 12/21/19 20:47 Not Given, Tbd - Other Routine Culture - Preliminary Staphylococcus aureus 12/21/19 16:00 Incision Gram Stain - Final 12/21/19 16:00 Incision Routine Culture - Preliminary Staphylococcus aureus 12/21/19 20:42 Not Given, Tbd - Other Gram Stain - Final 12/21/19 20:42 Not Given, Tbd - Other Routine Culture - Final No growth after 2 days Assessment and Plan (1) Infection of spinal cord stimulator: Problem details: There appears to be dehiscence area and drain Patient is tolerating Daptomycin well Status: Acute (2) Post-operative wound abscess: Status: Acute (3) Abscess in epidural space of thoracic spine: Status: Acute Assessment and Plan: 29 year male with chronic back who has a recent Spinal cord Simulator implanted around 11/25 presented post operative wound infection and concern for epidural absces and s/p removal of the spinal cord stimulator and battery. Has no feve or increase in WBC, his neuro exam is uremarkable including abscence of tingling or weakness in legs. CT of back post op showed no evidence of abscess. We proposed MRI for further evaluation but he relates that he cannot tolerate MRI even with sedation and infact would not be open for open MRI. He has been on Daptomycin. Wound culture and wire tip culture from 12/20 are growing Staph Aureus, sensitivity pending. -Continue IV Daptomycin, follow LFTs -Follow culture sensitivity -ID following -May need repeat Thoracic imaging CT or MR on Friday
[2019-12-24] MEDS: Morphine Sulfate 2 MG/ML CARTRIDGE 4 MG IVPUSH ×3 (10:30→21:12)
[2019-12-24] MEDS: 0.9 % Sodium Chloride Flush 3 ML SYRINGE 2 ML IVFLUSH ×3 (10:31→20:37)
[2019-12-24 11:03] LABS: Alanine Aminotransferase 23 U/L (0-40); Albumin Level 4.4 g/dL (3.5-5.0); Alkaline Phosphatase 63 U/L (39-117); Aspartate Amino Transferase 14 U/L (5-37); Bilirubin Direct 0.2 mg/dL (0.0-0.5); Bilirubin Total 0.7 mg/dL (0.0-1.0); Total Protein 6.8 g/dL (6.5-8.0)
--- NOTE | 2019-12-24 16:53 | PC.NURSE ---
NOTIFIED BY PATIENT THAT QUYEN DRAIN TO MID LOWER BACK FELL OUT. NO DRAINAGE NOTED. SURGEON NOTIFIED, ORDER TO CHANGE DRESSING AND MONITOR FOR ANY DRAINAGE OR NECROTIC TISSUE. DRESSING CHANGED , PATIENT TOLERATED WELL AT THIS TIME DRESSING IS DRY AND INTACT.
--- NOTE | 2019-12-24 16:55 | PM.IDPN ---
Subjective Subjective Date of Service: 12/24/19 Interval History: he feels well and wants to leave Objective Data Labs CBC & Chem 7: 12/25/19 14:46 12/25/19 14:46 Labs: Laboratory Results - last 24 hr 12/24/19 12/24/19 06:04 06:04 WBC 8.1 RBC 4.70 Hgb 14.6 Hct 42.0 MCV 89.4 MCH 31.1 MCHC 34.8 RDW 11.1 Plt Count 231 MPV 10.2 Absolute Nucleated RBC 0.000 Nucleated RBC % (auto) 0.0 Sodium 140 Potassium 4.3 Chloride 104 Carbon Dioxide 29 Anion Gap 11 L BUN 22 H Creatinine 1.02 Estim Creat Clear Calc 131.4 Estimated GFR > 60 Random Glucose 94 Calcium 9.3 Total Bilirubin 0.7 Direct Bilirubin 0.2 AST 14 ALT 23 Alkaline Phosphatase 63 Total Protein 6.8 Albumin 4.4 Microbiology Microbiology Results: Microbiology 12/21/19 20:47 Not Given, Tbd - Other Gram Stain - Final 12/21/19 20:47 Not Given, Tbd - Other Routine Culture - Preliminary Staphylococcus aureus 12/21/19 16:00 Incision Gram Stain - Final 12/21/19 16:00 Incision Routine Culture - Preliminary Staphylococcus aureus 12/21/19 20:42 Not Given, Tbd - Other Gram Stain - Final 12/21/19 20:42 Not Given, Tbd - Other Routine Culture - Final No growth after 2 days Physical Exam Vital Signs and I&O and Narrative: Vital Signs and I&O: Vital Signs Temp 97.7 F 12/24/19 15:53 Pulse 73 12/24/19 15:53 Resp 18 12/24/19 15:53 BP 142/71 H 12/24/19 15:53 Pulse Ox 99 12/24/19 15:53 Intake & Output 12/23/19 12/24/19 12/24/19 18:59 06:59 18:59 Intake Total 120 / 661.7 541.7 / 661.7 1600 / 1600 Output Total 202 / 204 Balance 118 / 457.7 339.7 / 457.7 1600 / 1600 Urine Output (Aver age ml/kg/hr) 0.17 0.17 Intake: Intake, Oral Jian unt 120 / 600 480 / 600 600 / 600 Intake, IV Amoun t 61.7 / 61.7 1000 / 1000 DAPTOmycin 585 mg In 0.9 % 61.7 / 61.7 Sodium Chlorid e 50 ml @ 123.4 mls/hr IV Q24H [facility] Rx#: [id number] Lactated Ringe rs 1,000 ml @ 50 1000 / 1000 mls/hr IVCONT .Q20H [facility] Rx#: [id number] Output: Output, Urine Am ount 200 / 200 Output, Tube [place] unt PERZE Drain Other: Meal Refused No NPO No Breakfast % Eate n 100% Dinner % Eaten 100% Urine Urinal Urine Color Yellow Body Mass Index 28.3 Const: General: healthy appearing Resp: Effort & Inspection: normal respiratory effort Cardio: Rate: regular rate Rhythm: regular rhythm GI: Inspection: Yes normal to inspection
[2019-12-25] VITALS (8 sets, daily range): BP systolic 100–125; BP diastolic 58–75; PULSE 60–93; RESP 16–18; TEMP 35.6–37.3; O2SAT 95–98
[2019-12-25] MEDS: oxyCODONE HCl Immed Release 5 MG TABLET PO ×2 (06:10→10:17)
[2019-12-25] MEDS: 0.9 % Sodium Chloride Flush 3 ML SYRINGE 2 ML IVFLUSH ×2 (07:30→16:08)
[2019-12-25] MEDS: Morphine Sulfate 2 MG/ML CARTRIDGE 4 MG IVPUSH ×2 (07:37→12:01)
--- NOTE | 2019-12-25 08:31 | MHC.CM.PN ---
Patient has been medically cleared for dc to home today, no services.
[2019-12-25] MEDS: oxyCODONE HCl Immed Release 5 MG TABLET 10 MG PO ×3 (13:38→21:52)
--- NOTE | 2019-12-25 13:38 | PM.IMPN ---
Subjective Subjective Date of Service: 12/25/19 Interval History: seen and examined this AM patient was looking forward to going home. was very upset initially when told that he would need to wait until Friday. Seen multiple times. Gave permission to speak with his fiance, Marixa. D/W After multiple explanations -- understands why he needs to stay denies any leg weakness or numbness changes reports chronic pain but nothing new Review of Systems General - no fevers or chills Cardiovascular - no chest pain Respiratory - no shortness of breath or cough Abdominal- no abdominal pain, nausea, vomiting, diarrhea MSK - no weakness of b/l LE, no numbness; back pain which is not new Physical Exam Vital Signs: Vital Signs: Vital Signs Temp Pulse Resp BP Pulse Ox 12/25/19 12:01 18 12/25/19 11:52 99.2 F 89 18 121/73 95 12/25/19 08:00 97.8 F 82 18 119/74 12/25/19 07:37 18 12/25/19 03:10 96.1 F L 60 18 111/63 12/24/19 23:20 97.8 F 80 18 108/60 97 12/24/19 19:18 98.0 F 87 19 105/59 L 96 12/24/19 15:53 97.7 F 73 18 142/71 H 99 Body Mass Index 28.3 General - no acute distress, appears comfortable Cardiovascular - regular rate and rhythm, S1-S2 Lungs - normal respiratory effort, clear to auscultation bilaterally, no wheezing Abdomen - soft, nontender, no rebound regarding Extremities - no edema bilaterally Neuro - awake and alert, no focal deficits -- strength b/l LE 5/5 and equal; no hyperreflexia Objective Data Current Medications Generic Name Dose Route Start Last Admin Trade Name Freq PRN Reason Stop Dose Admin Daptomycin 585 mg/ Sodium 61.7 mls @ 123.4 mls/hr 12/23/19 20:00 12/24/19 21:13 Chloride IV Infused Q24H [facility] Infusion Ondansetron HCl 4 mg 12/21/19 19:02 Ondansetron Hcl 4 Mg/2 Ml Vial IVPUSH ONCE PRN Nausea and Vomiting Oxycodone HCl 10 mg 12/25/19 13:10 Oxycodone Hcl Immed Release 5 Mg Tablet PO Q4H PRN Pain, Severe (Pain Scale 7-10) Sodium Chloride 2 ml 12/22/19 08:00 12/25/19 07:30 0.9 % Sodium Chloride Flush 3 Ml Syringe IVFLUSH 2 ml QSHIFT [facility] Administration Labs CBC & Chem 7: 12/25/19 14:46 12/25/19 14:46 Microbiology Microbiology Results: Microbiology 12/21/19 20:47 Not Given, Tbd - Other Gram Stain - Final 12/21/19 20:47 Not Given, Tbd - Other Routine Culture - Final Staphylococcus aureus 12/21/19 16:00 Incision Gram Stain - Final 12/21/19 16:00 Incision Routine Culture - Final Staphylococcus aureus 12/21/19 20:42 Not Given, Tbd - Other Gram Stain - Final 12/21/19 20:42 Not Given, Tbd - Other Routine Culture - Final No growth after 2 days Progress Note: A&P (1) Infection of spinal cord stimulator: Problem details: There appears to be dehiscence area and drain Patient is tolerating Daptomycin well Status: Acute (2) Post-operative wound abscess: Status: Acute Assessment and Plan: This is a 29-year-old male with a history of chronic pain who underwent a spinal cord stimulator implantation around 11/26/2019. He was seen in the pain clinic on 12/21/2019 and subseuqently underwent removal of his stimulator after which he as subsequently admitted to the hospital for further management. Postoperatively a lumbar CT spine without contrast a superficial fluid drain but unable to comment on epidural abscess given lack of IV contrast. He was commenced done IV antibiotics and the next morning he underwent a CT of the spine with contrast which did not show any epidural abscess. His wound cultures have grown Staph aureus, which is resistant to penicillin but otherwise sensitive. Infectious Disease has been. 1. infected spinal stimulator Status post removal of hardware No evidence epidural abscess on CT with contrast, patient has been refusing MRI due claustrophobia. He has been informed that he can undergo sedation with subsequent MRI but at this time is refusing. Understands the risks which potentially include complete paralysis Will continue IV daptomycin -- check daily labs Follow-up blood cultures, ordered Clinically, he remains without any signs or symptoms of cord compromise. Patient's pain Dr. Weber to see the patient, still pending. DVT pptx, low risk -- early ambulation + compression device
--- NOTE | 2019-12-25 13:55 | MHC.CM.PN ---
CORRECTION!! Patient is NOT medically cleared for dc to home today. DC order appeared to be in earlier this morning but no planned dc for today, up to this point. CM will follow for dc planning.
[2019-12-25 15:01] LABS: Baso%MD 0.7 %; Eos%MD 7.4 %; Hematocrit 41.4 % (42-52); Hemoglobin 14.9 g/dl (14.0-18.0); IG%MD 0.4 %; Lymph%MD 22.7 %; Mean Corpuscular Hemoglobin 31.1 pg (27.0-33.0); Mean Corpuscular Volume 86.4 fL (80-98); Mean Platelet Volume 10.2 fL (9.4-12.4); Mono%MD 8.5 %; Neut%MD 60.3 %; Platelet Count 250 X10*3/uL (160-400); Red Blood Count 4.79 X10*6/uL (4.60-5.80); Red Cell Distribution Width 11.1 % (11.0-16.0); White Blood Count 8.4 X10*3/uL (4.8-10.8)
[2019-12-25 15:27] LABS: Alanine Aminotransferase 23 U/L (0-40); Albumin Level 4.6 g/dL (3.5-5.0); Alkaline Phosphatase 66 U/L (39-117); Anion Gap 14 (12-20); Aspartate Amino Transferase 15 U/L (5-37); Bilirubin Direct 0.2 mg/dL (0.0-0.5); Bilirubin Total 0.5 mg/dL (0.0-1.0); Blood Urea Nitrogen 25 mg/dL (9-16); Calcium 9.3 mg/dL (8.4-10.2); Carbon Dioxide 25 mmol/L (22-29); Chloride 104 mmol/L (96-108); Creatinine Clr Calc Pharmacy 136.7; Estimated Glomerular Filt Rate > 60; Glucose Random 118 mg/dL (60-115); Sodium 139 mmol/L (135-145); Total Protein 7.2 g/dL (6.5-8.0)
[2019-12-25 16:56] LABS: Eosinophils Absolute Manual 0.3 X10*3/UL (0.0-0.8); Eosinophils Percent Manual 4 % (0-4); Lymphocytes Absolute Manual 1.9 X10*3/uL (0.6-4.8); Lymphocytes Percent Manual 23 % (20-40); Monocytes Absolute Manual 0.9 X10*3/uL (0.0-1.2); Monocytes Percent Manual 11 % (2-11); Neutrophils Percent Manual 62 % (45-73); RBC Morphology NORMAL
[2019-12-25 16:57] LABS: Band Neutrophils Percent 0 % (3-5); Neutrophils Absolute Manual 5.2 X10*3/uL (2.2-7.9); Platelet Estimate NORMAL (NORMAL); Platelet Morphology Comment NORMAL
[2019-12-26] MEDS: 0.9 % Sodium Chloride Flush 3 ML SYRINGE 2 ML IVFLUSH ×3 (00:13→16:42)
[2019-12-26] MEDS: oxyCODONE HCl Immed Release 5 MG TABLET 10 MG PO ×6 (01:52→20:25)
[2019-12-26 03:46] VITALS: BP 110/70; PULSE 86; RESP 18; TEMP 36.4; O2SAT 96
[2019-12-26 07:44] VITALS: BP 99/51; PULSE 71; RESP 18; TEMP 36.6; O2SAT 98
--- NOTE | 2019-12-26 07:52 | PC.NURSE ---
0600 PEREZ DRAIN EMPTIED FOR ABOUT 4 MLS, SEROSANGUINEOUS.
[2019-12-26 12:00] VITALS: BP 120/76; PULSE 67; RESP 18; TEMP 36.4; O2SAT 97
--- NOTE | 2019-12-26 12:49 | P.PNIM_ITS ---
Subjective Subjective Date of Service: 12/26/19 Interval History: seen and examined this AM better mood today reports pain med changes helping, oxy working for about 2-3 hours. denies weakness or numbness in the b/l LE denies urinary incontinence Review of Systems General - no fevers or chills Cardiovascular - no chest pain Respiratory - no shortness of breath or cough Abdominal- no abdominal pain, nausea, vomiting, diarrhea neuro -- no weakness / numbness / bowel, bladder incontinence Physical Exam Vital Signs: Vital Signs: Vital Signs Temp Pulse Resp BP Pulse Ox 12/26/19 12:00 97.5 F 67 18 120/76 97 12/26/19 07:44 97.9 F 71 18 99/51 L 98 12/26/19 03:46 97.6 F 86 18 110/70 96 12/25/19 23:45 98.2 F 91 18 117/75 96 12/25/19 19:56 98.4 F 93 125/73 97 12/25/19 15:56 98.1 F 78 16 100/58 L 98 Body Mass Index 28.3 General - no acute distress, appears comfortable Cardiovascular - regular rate and rhythm, S1-S2 Lungs - normal respiratory effort, clear to auscultation bilaterally, no wheezing Abdomen - soft, nontender, no rebound regarding Extremities - no edema bilaterally Neuro - awake and alert, no focal deficits -- strength b/l LE 5/5 and equal; reflexes nl skin - surigcal sites appear clean without any drinage Objective Data Current Medications Generic Name Dose Route Start Last Admin Trade Name Freq PRN Reason Stop Dose Admin Daptomycin 585 mg/ Sodium 61.7 mls @ 123.4 mls/hr 12/23/19 20:00 12/25/19 21:15 Chloride IV Infused Q24H PRANAV Infusion Ondansetron HCl 4 mg 12/21/19 19:02 Ondansetron Hcl 4 Mg/2 Ml Vial IVPUSH ONCE PRN Nausea and Vomiting Oxycodone HCl 10 mg 12/26/19 10:31 Oxycodone Hcl Immed Release 5 Mg Tablet PO Q3H PRN Pain, Severe (Pain Scale 7-10) Sodium Chloride 2 ml 12/22/19 08:00 12/26/19 08:36 0.9 % Sodium Chloride Flush 3 Ml Syringe IVFLUSH 2 ml QSHIFT PRANAV Administration Labs CBC & Chem 7: 10/10/20 14:46 12/25/19 14:46 Microbiology Microbiology Results: Microbiology 12/21/19 20:47 Not Given, Tbd - Other Gram Stain - Final 12/21/19 20:47 Not Given, Tbd - Other Routine Culture - Final Staphylococcus aureus 12/21/19 16:00 Incision Gram Stain - Final 12/21/19 16:00 Incision Routine Culture - Final Staphylococcus aureus 12/21/19 20:42 Not Given, Tbd - Other Gram Stain - Final 12/21/19 20:42 Not Given, Tbd - Other Routine Culture - Final No growth after 2 days Assessment and Plan (1) Infection of spinal cord stimulator: Status: Acute (2) Post-operative wound abscess: Status: Acute Assessment and Plan: This is a 29-year-old male with a history of chronic pain who underwent a spinal cord stimulator implantation around 11/26/2019. He was seen in the pain clinic on 12/21/2019 and subseuqently underwent removal of his stimulator after which he as subsequently admitted to the hospital for further management. Postoperatively a lumbar CT spine without contrast a superficial fluid drain but unable to comment on epidural abscess given lack of IV contrast. He was commenced done IV antibiotics and the next morning he underwent a CT of the spine with contrast which did not show any epidural abscess. His wound cultures have grown Staph aureus, which is resistant to penicillin but otherwise sensitive. Infectious Disease has been. 1. Infected spinal cord stimulator vs osteo, no evidence of epidural abscess on CT imaging Status post removal of hardware Cultures growing staph Plan for MRI with anestheisa on Friday to evaluate if osteo. No CT evidence of epidural abscess continue dapomycin f/u blood cultures may need PICC line pending MR results d/w Dr. Weber via [employer] today -- is is aware of the above DVT pptx, low risk -- early ambulation + compression device
[2019-12-26 15:09] VITALS: BP 121/65; PULSE 77; RESP 18; TEMP 36.6; O2SAT 96
[2019-12-26 19:23] VITALS: BP 112/63; PULSE 76; RESP 19; TEMP 36.7; O2SAT 95
[2019-12-26 23:48] VITALS: BP 137/75; PULSE 97; RESP 18; TEMP 37; O2SAT 97
[2019-12-27] MEDS: oxyCODONE HCl Immed Release 5 MG TABLET 10 MG PO ×8 (00:04→22:47)
[2019-12-27] MEDS: 0.9 % Sodium Chloride Flush 3 ML SYRINGE 2 ML IVFLUSH ×3 (00:09→22:49)
[2019-12-27 03:52] VITALS: BP 127/74; PULSE 78; RESP 18; TEMP 36.9; O2SAT 95
[2019-12-27] MEDS: diphenhydrAMINE HCL 50 MG/ML VIAL 25 MG IVPUSH (04:59)
[2019-12-27 06:40] LABS: MANUAL DIFF FLAG NO
[2019-12-27 07:04] LABS: Basophils Absolute Auto 0.1 X10*3/uL (0.0-0.2); Basophils Percent Auto 1.1 % (0-2); Eosinophils Absolute Auto 0.7 X10*3/uL (0.0-0.4); Eosinophils Percent Auto 8.2 % (0-4); Hematocrit 41.3 % (42-52); Hemoglobin 14.9 g/dl (14.0-18.0); Imm Gran Abs Auto 0.04 X10*3/uL (0.00-0.03); Imm Gran Pct Auto 0.4 % (0.0-0.4); Lymphocytes Absolute Auto 2.5 X10*3/uL (1.2-4.9); Lymphocytes Percent Auto 27.3 % (20-40); Mean Corpuscular HGB Conc 36.1 g/dl (31.0-36.0); Mean Corpuscular Hemoglobin 31.4 pg (27.0-33.0); Mean Corpuscular Volume 86.9 fL (80-98); Mean Platelet Volume 10.8 fL (9.4-12.4); Monocytes Absolute Auto 0.8 X10*3/uL (0.1-1.2); Monocytes Percent Auto 9.1 % (2-11); Neutrophils Absolute Auto 4.9 X10*3/uL (2.0-8.3); Neutrophils Percent Auto 53.9 % (45-73); Platelet Count 245 X10*3/uL (160-400); Red Blood Count 4.75 X10*6/uL (4.60-5.80); Red Cell Distribution Width 11.1 % (11.0-16.0)
[2019-12-27 07:27] LABS: Alanine Aminotransferase 27 U/L (0-40); Albumin Level 4.6 g/dL (3.5-5.0); Alkaline Phosphatase 68 U/L (39-117); Anion Gap 12 (12-20); Aspartate Amino Transferase 17 U/L (5-37); Bilirubin Direct 0.2 mg/dL (0.0-0.5); Bilirubin Total 0.5 mg/dL (0.0-1.0); Blood Urea Nitrogen 22 mg/dL (9-16); Calcium 9.4 mg/dL (8.4-10.2); Carbon Dioxide 28 mmol/L (22-29); Chloride 103 mmol/L (96-108); Creatinine Clr Calc Pharmacy 132.7; Estimated Glomerular Filt Rate > 60; Glucose Random 99 mg/dL (60-115); Potassium 4.5 mmol/l (3.3-5.1); Sodium 138 mmol/L (135-145)
[2019-12-27 07:53] VITALS: BP 114/66; PULSE 66; RESP 18; TEMP 37; O2SAT 96
[2019-12-27 12:00] VITALS: BP 118/72; PULSE 72; RESP 18; TEMP 36.4; O2SAT 98
--- NOTE | 2019-12-27 14:14 | HO.PM.IMPN ---
Subjective Subjective Date of Service: 12/27/19 Interval History: seen and examined this AM doing well awaiting MRI tomorrow Review of Systems General - no fevers or chills Cardiovascular - no chest pain Respiratory - no shortness of breath or cough Abdominal- no abdominal pain, nausea, vomiting, diarrhea neuro - no weakness or numbness in the bilateral LE; no urinary retention Physical Exam Vital Signs: Vital Signs: Vital Signs Temp Pulse Resp BP Pulse Ox 12/27/19 12:00 97.6 F 72 18 118/72 98 12/27/19 07:53 98.6 F 66 18 114/66 96 12/27/19 03:52 98.5 F 78 18 127/74 95 12/26/19 23:48 98.6 F 97 18 137/75 97 12/26/19 19:23 98.1 F 76 19 112/63 95 12/26/19 15:09 98 F 77 18 121/65 96 Body Mass Index 28.3 General - no acute distress, appears comfortable Cardiovascular - regular rate and rhythm, S1-S2 Lungs - normal respiratory effort, clear to auscultation bilaterally, no wheezing Abdomen - soft, nontender, no rebound regarding Extremities - no edema bilaterally Neuro - awake and alert, no focal deficits -- strength b/l LE 5/5 and equal; reflexes nl skin - surigcal sites appear clean without any drainge Objective Data Current Medications Generic Name Dose Route Start Last Admin Trade Name Freq PRN Reason Stop Dose Admin Daptomycin 585 mg/ Sodium 61.7 mls @ 123.4 mls/hr 12/23/19 20:00 12/26/19 21:17 Chloride IV Infused Q24H PRANAV Infusion Ondansetron HCl 4 mg 12/21/19 19:02 Ondansetron Hcl 4 Mg/2 Ml Vial IVPUSH ONCE PRN Nausea and Vomiting Oxycodone HCl 10 mg 12/26/19 10:31 12/27/19 13:18 Oxycodone Hcl Immed Release 5 Mg Tablet PO 10 mg Q3H PRN Administration Pain, Severe (Pain Scale 7-10) Sodium Chloride 2 ml 12/22/19 08:00 12/27/19 08:56 0.9 % Sodium Chloride Flush 3 Ml Syringe IVFLUSH 2 ml QSHIFT PRANAV Administration Labs CBC & Chem 7: 12/27/19 05:55 12/27/19 05:55 Microbiology Microbiology Results: Microbiology 12/25/19 14:46 Blood - Venous Blood Culture - Preliminary No growth after 24 hours. 12/25/19 14:46 Blood - Venous Blood Culture - Preliminary No growth after 24 hours. 12/21/19 20:47 Not Given, Tbd - Other Gram Stain - Final 12/21/19 20:47 Not Given, Tbd - Other Routine Culture - Final Staphylococcus aureus 12/21/19 16:00 Incision Gram Stain - Final 12/21/19 16:00 Incision Routine Culture - Final Staphylococcus aureus 12/21/19 20:42 Not Given, Tbd - Other Gram Stain - Final 12/21/19 20:42 Not Given, Tbd - Other Routine Culture - Final No growth after 2 days Assessment and Plan (1) Infection of spinal cord stimulator: Status: Acute (2) Post-operative wound abscess: Status: Acute Assessment and Plan: This is a 29-year-old male with a history of chronic pain who underwent a spinal cord stimulator implantation around 11/26/2019. He was seen in the pain clinic on 12/21/2019 and subseuqently underwent removal of his stimulator after which he as subsequently admitted to the hospital for further management. Postoperatively a lumbar CT spine without contrast a superficial fluid drain but unable to comment on epidural abscess given lack of IV contrast. He was commenced done IV antibiotics and the next morning he underwent a CT of the spine with contrast which did not show any epidural abscess. His wound cultures have grown Staph aureus, which is resistant to penicillin but otherwise sensitive. Infectious Disease has been. 1. Infected spinal cord stimulator vs osteo, no evidence of epidural abscess on CT imaging Status post removal of hardware Cultures growing MSSA On Daptomycin, will continue the same Plan for MRI with anestheisa on Friday to evaluate if osteo. No CT evidence of epidural abscess blood cx negative to date may need PICC line pending MR results d/w Dr. Weber via [employer] daily -- he tells me he has spoken with Anesthesia and patient will have MR tomorrow ID on board -- recs appreciated DVT pptx, low risk -- early ambulation + compression device
[2019-12-27 16:00] VITALS: BP 132/79; PULSE 83; RESP 18; TEMP 36.8; O2SAT 98
[2019-12-27 19:50] VITALS: BP 120/76; PULSE 94; RESP 18; TEMP 36.3; O2SAT 95
[2019-12-27 23:19] VITALS: BP 122/76; PULSE 92; RESP 18; TEMP 36.6; O2SAT 99
[2019-12-28] MEDS: oxyCODONE HCl Immed Release 5 MG TABLET 10 MG PO ×5 (01:43→21:54)
[2019-12-28 04:00] VITALS: BP 116/70; PULSE 75; RESP 16; TEMP 36.6; O2SAT 97
[2019-12-28 06:25] LABS: MANUAL DIFF FLAG NO
[2019-12-28 06:41] LABS: Basophils Absolute Auto 0.1 X10*3/uL (0.0-0.2); Basophils Percent Auto 1.4 % (0-2); Eosinophils Absolute Auto 0.9 X10*3/uL (0.0-0.4); Eosinophils Percent Auto 9.6 % (0-4); Hematocrit 43.3 % (42-52); Hemoglobin 15.4 g/dl (14.0-18.0); Imm Gran Abs Auto 0.03 X10*3/uL (0.00-0.03); Imm Gran Pct Auto 0.3 % (0.0-0.4); Lymphocytes Absolute Auto 2.9 X10*3/uL (1.2-4.9); Lymphocytes Percent Auto 32.5 % (20-40); Mean Corpuscular HGB Conc 35.6 g/dl (31.0-36.0); Mean Corpuscular Hemoglobin 31.3 pg (27.0-33.0); Mean Platelet Volume 10.5 fL (9.4-12.4); Monocytes Absolute Auto 0.9 X10*3/uL (0.1-1.2); Monocytes Percent Auto 10.3 % (2-11); Neutrophils Absolute Auto 4.1 X10*3/uL (2.0-8.3); Neutrophils Percent Auto 45.9 % (45-73); Platelet Count 243 X10*3/uL (160-400); Red Blood Count 4.92 X10*6/uL (4.60-5.80); Red Cell Distribution Width 11.2 % (11.0-16.0)
[2019-12-28 07:04] LABS: Anion Gap 12 (12-20); Blood Urea Nitrogen 23 mg/dL (9-16); Calcium 9.5 mg/dL (8.4-10.2); Carbon Dioxide 29 mmol/L (22-29); Chloride 102 mmol/L (96-108); Creatinine Clr Calc Pharmacy 119.6; Estimated Glomerular Filt Rate > 60; Glucose Random 92 mg/dL (60-115); Potassium 4.8 mmol/l (3.3-5.1); Sodium 138 mmol/L (135-145)
[2019-12-28 08:00] VITALS: BP 117/74; PULSE 68; RESP 18; TEMP 36.3; O2SAT 99
[2019-12-28] MEDS: 0.9 % Sodium Chloride Flush 3 ML SYRINGE 2 ML IVFLUSH ×2 (08:34→16:56)
[2019-12-28 12:00] VITALS: BP 120/65; PULSE 99; RESP 20; TEMP 36.3; O2SAT 95
--- NOTE | 2019-12-28 13:09 | W.PM.IDCN ---
History of Present Illness Data of Consult Primary Care Provider: Elfego Temple. Review of Systems Constitutional: Constitutional: Denies frequent falls and Reports weakness Musculoskeletal: Musculoskeletal: Denies numbness and Denies tingling Neurologic: Denies confusion, Denies frequent falls, Denies memory loss, Denies numbness, Reports radicular pain, Denies seizure-like activity, Denies tingling, Denies paresthesias, Denies tremor(s) and Reports weakness Psychiatric: Psychiatric: Denies confusion and Denies memory loss [facility] Past Medical History Medical History Abscess in epidural space of thoracic spine Mild asthma Right knee meniscal tear Spinal cord stimulator dysfunction Wound infection Functional capacity: independent ambulation Family History Family history: reviewed and not pertinent Surgical History Surgical History Boxer's fracture History of appendectomy History of back surgery History of incisional hernia repair Status post lumbar microdiscectomy Social History Social History Household Members: Spouse and Children Housing: House Do you presently have visiting nurse or other home services: No Smoking Status: Former smoker Smoked in Last 30 Days: No Use of substances other than those prescribed or required for medical reasons: No Currently Displaying Signs/Symptoms of Drug Intoxication Withdrawal: No Have you been hit, kicked, punched, or otherwise hurt by someone within the past year? If so, by whom?: No Do you feel safe in your current relationship?: No Is there a partner from a previous relationship who is making you feel unsafe now?: No Are you made to feel afraid or neglected: No Advance Directives: No Advance Directives Information Provided: No Advance Directives on File: No Do you have thoughts of harming others: None Do you have a plan to hurt others: No Plan Recently lost weight without trying: No service: No Current occupational status: unemployed Meds Allergies Allergy/AdvReac Type Severity Reaction Status Date / Time tramadol [TRAMADOL] Allergy Unknown SEIZURE Verified 12/21/19 19:23 transparent dressing Allergy Unknown Rash Verified 12/21/19 18:52 [Tegaderm] Home Medications Medication Instructions Recorded Confirmed Type cephalexin 500 mg capsule 1,000 mg PO Q6H 12/18/19 12/28/19 History escitalopram oxalate 5 mg tablet 5 mg PO DAILY 12/18/19 12/28/19 History hydroxyzine HCl 25 mg tablet 25 mg PO TID 12/18/19 12/28/19 History hydroxyzine HCl 50 mg tablet 50 mg PO TID 12/18/19 12/28/19 History oxycodone-acetaminophen 5 mg-325 1 tab PO QID PRN 12/18/19 12/28/19 History mg tablet paroxetine HCl 20 mg tablet 20 mg PO DAILY 12/18/19 12/28/19 History prednisone 50 mg tablet 50 mg PO DAILY 12/18/19 12/28/19 History sertraline 25 mg tablet 25 mg PO DAILY 12/18/19 12/28/19 History Physical Exam Vital Signs: Vital Signs: Vital Signs Temp Pulse Resp BP Pulse Ox 12/28/19 12:00 97.4 F 99 20 120/65 95 12/28/19 08:00 97.4 F 68 18 117/74 99 12/28/19 04:00 97.9 F 75 16 116/70 97 12/27/19 23:19 97.8 F 92 18 122/76 99 12/27/19 19:50 97.4 F 94 18 120/76 95 12/27/19 16:00 98.2 F 83 18 132/79 98 Body Mass Index 28.3 Const: General: No confusion Orientation/consciousness: No confusion Neuro: General: No confusion Assessment and Plan (1) Epidural abscess: Problem details: Staph aureus, possible MSSA ?MRSA ,doubt VRSA,but pending Status: Acute (2) Infection of spinal cord stimulator: Status: Acute (3) Wound infection: Status: Acute Possible MSSA Continue Daptomycin
[2019-12-28 14:24] LABS: Erythrocyte Sedimentation Rate 10 MM/HR (0-15)
[2019-12-28 15:49] VITALS: BP 114/71; PULSE 90; RESP 17; TEMP 36.1; O2SAT 94
--- NOTE | 2019-12-28 17:04 | P.PNIM_ITS ---
Subjective Subjective Date of Service: 12/28/19 Interval History: going for MRI today very irate about the length of his hospitalization, wants to go home LULY no new symptoms Review of Systems General - no fevers or chills Cardiovascular - no chest pain Respiratory - no shortness of breath or cough Abdominal- no abdominal pain, nausea, vomiting, diarrhea neuro -- no weakness / numbness / bowel, bladder incontinence Constitutional Constitutional: Denies fever(s) Musculoskeletal Musculoskeletal: Reports back pain Neurologic Neurologic: Denies focal weakness Physical Exam Vital Signs: Vital Signs: Vital Signs Temp Pulse Resp BP Pulse Ox 12/28/19 15:49 97 F 90 17 114/71 94 12/28/19 12:00 97.4 F 99 20 120/65 95 12/28/19 08:00 97.4 F 68 18 117/74 99 12/28/19 04:00 97.9 F 75 16 116/70 97 12/27/19 23:19 97.8 F 92 18 122/76 99 12/27/19 19:50 97.4 F 94 18 120/76 95 Body Mass Index 28.3 Const: General: no acute distress Resp: Effort & Inspection: normal respiratory effort Auscultation: clear to auscultation bilaterally Cardio: Rate: regular rate Rhythm: regular rhythm Back/Spine/Pelvis: Other: lower thoracic wound with dressing and PEREZ drain with serosanguinous liquid Objective Data Current Medications Generic Name Dose Route Start Last Admin Trade Name Freq PRN Reason Stop Dose Admin Daptomycin 585 mg/ Sodium 61.7 mls @ 123.4 mls/hr 12/27/19 16:00 12/27/19 20:13 Chloride IV Infused Q24H PRANAV Infusion Ondansetron HCl 4 mg 12/21/19 19:02 Ondansetron Hcl 4 Mg/2 Ml Vial IVPUSH ONCE PRN Nausea and Vomiting Oxycodone HCl 10 mg 12/26/19 10:31 12/28/19 16:55 Oxycodone Hcl Immed Release 5 Mg Tablet PO 10 mg Q3H PRN Administration Pain, Severe (Pain Scale 7-10) Sodium Chloride 2 ml 12/22/19 08:00 12/28/19 16:56 0.9 % Sodium Chloride Flush 3 Ml Syringe IVFLUSH 2 ml QSHIFT PRANAV Administration Labs CBC & Chem 7: 12/28/19 05:07 12/28/19 05:07 Labs: Laboratory Results - last 24 hr 12/28/19 12/28/19 12/28/19 05:07 05:07 05:07 MCV 88.0 MCH 31.3 MCHC 35.6 RDW 11.2 Plt Count 243 MPV 10.5 Immature Gran % (Auto) 0.3 Neut % (Auto) 45.9 Lymph % (Auto) 32.5 [place] % (Auto) 10.3 Eos % (Auto) 9.6 H Baso % (Auto) 1.4 Lymph # (Auto) 2.9 [place] # (Auto) 0.9 Eos # (Auto) 0.9 H Baso # (Auto) 0.1 Abs Immat Gran (auto) 0.03 Absolute Neuts (auto) 4.1 Absolute Nucleated RBC 0.000 Nucleated RBC % (auto) 0.0 ESR Anion Gap 12 Estim Creat Clear Calc 119.6 Estimated GFR > 60 Random Glucose 92 Calcium 9.5 Total Creatine Kinase C-Reactive Protein 0.90 H 12/28/19 12/28/19 13:03 13:03 MCV MCH MCHC RDW Plt Count MPV Immature Gran % (Auto) Neut % (Auto) Lymph % (Auto) [place] % (Auto) Eos % (Auto) Baso % (Auto) Lymph # (Auto) [place] # (Auto) Eos # (Auto) Baso # (Auto) Abs Immat Gran (auto) Absolute Neuts (auto) Absolute Nucleated RBC Nucleated RBC % (auto) ESR 10 Anion Gap Estim Creat Clear Calc Estimated GFR Random Glucose Calcium Total Creatine Kinase 60 C-Reactive Protein Microbiology Microbiology Results: Microbiology 12/25/19 14:46 Blood - Venous Blood Culture - Preliminary No growth after 48 hours. 12/25/19 14:46 Blood - Venous Blood Culture - Preliminary No growth after 48 hours. 12/21/19 20:47 Not Given, Tbd - Other Gram Stain - Final 12/21/19 20:47 Not Given, Tbd - Other Routine Culture - Final Staphylococcus aureus 12/21/19 16:00 Incision Gram Stain - Final 12/21/19 16:00 Incision Routine Culture - Final Staphylococcus aureus 12/21/19 20:42 Not Given, Tbd - Other Gram Stain - Final 12/21/19 20:42 Not Given, Tbd - Other Routine Culture - Final No growth after 2 days Progress Note: A&P (1) Infection of spinal cord stimulator: Status: Acute (2) Post-operative wound abscess: Status: Acute Assessment and Plan: hospital d#8 29yo M with chronic back pain s/p spinal cord stimulator, removed due to concern of infection no epidural abscess on contrast CT wound culture growing MSSA awaiting contrast MRI 1. MSSA hardware infection - intolerant of MRI without anesthesia due to claustrophobia, so MRI with anesthesia scheduled for today - per ID, continue IV daptomycin pending MRI results to determine length of treatment given virulence of organism and concern for underlying osteomyelitis; will need PICC line- will order - BCx negative - discussed with Pain Mgmt infrastructure technician Dr Morales 2. chronic back pain - prn oxycodone 3. VTE ppx - SCDs, early ambulation
[2019-12-28 19:39] VITALS: BP 126/73; PULSE 99; RESP 18; TEMP 36.2; O2SAT 95
[2019-12-28 23:44] VITALS: BP 147/84; PULSE 94; RESP 20; TEMP 36.4; O2SAT 94
[2019-12-29] MEDS: 0.9 % Sodium Chloride Flush 3 ML SYRINGE 2 ML IVFLUSH ×3 (01:20→16:42)
[2019-12-29] MEDS: oxyCODONE HCl Immed Release 5 MG TABLET 10 MG PO ×4 (01:29→16:55)
[2019-12-29 03:46] VITALS: BP 102/66; PULSE 69; RESP 18; TEMP 37.1; O2SAT 97
[2019-12-29 08:00] VITALS: BP 102/72; PULSE 78; RESP 18; TEMP 36.5; O2SAT 95
--- NOTE | 2019-12-29 11:13 | P.PICC_ITS ---
PICC Line Insertion NPICC Diagnosis: [infected spinal cord stimulator] Indication: [manager terminal antibiotics] Pertinent Labs: [reviewed] Technique: Following informed consent including risks, benefits and alternatives and using sterile technique including cap and mask, sterile gown, glove and drape, the [RIGHT] arm was prepped and draped in the usual sterile fashion of full barrier technique with CHG. Following completion of [place] Protocol the skin and soft tissues were anesthetized with 1% Lidocaine plain. Using ultrasound guidance, [BASILIC] vein access was obtained. Over an 0.018 wire through peel-away sheath, a [SINGLE LUMEN 4 ICELANDIC] PICC line was positioned. Catheter length is [42 CM] internal length, [0 CM AT HUB)] external length, for a total trimmed length of [42 CM. The procedure was performed in [ULTRASOUND- IR]. Tip verification was performed by Reynold Rebollar with [employer]lock 3CG. Tip located in SVC. Ultrasound was used to document vein patency and for needle entry. A formal ultrasound picture and cardiac rhythm strip was recorded. [employer] has released the line for use and it is currently dressed with a StatLock, Tegaderm, and CHG disc. Verification has been performed for blood return and line patency. Arm Circumference: [32 CM] Equipment: [[employer] POWER PICC SOLO] Catheter Type: [SINGLE LUMEN 4 ICELANDIC PICC] Lot #: [[id number]]
[2019-12-29 11:54] VITALS: BP 131/82; PULSE 78; RESP 18; TEMP 36.1; O2SAT 97
--- NOTE | 2019-12-29 12:49 | MHC.CM.PN ---
Patient will be going home on IV Dapto. Referred to [facility] per patient's OK.
[2019-12-29 16:00] VITALS: BP 117/82; PULSE 112; RESP 18; TEMP 36.4; O2SAT 97
--- NOTE | 2019-12-29 16:38 | MHC.CM.PN ---
Patient will be discharged home today with services from [facility] and IV supplies from [facility]. S[facility]O. will provide transport.
[2019-12-29] MEDS: 0.9 % Sodium Chloride Flush 10 ML SYRINGE 5 ML IVFLUSH (16:42)
--- NOTE | 2019-12-29 16:45 | P.F2F_ITS ---
Service Date Service Date: 12/29/19 Encounter Date of encounter: 12/29/19 Reasons for Services Reason for retirement: wound care, central line care, postoperative assessment and/or care, medication management and medication treatment MD overseeing care: Elfego Temple MD Homebound: Leaving the home is medically contraindicated at this time without the asist of a device and/or another person due th the listed conditions above and below. Reason homebound: immunosuppression / infection risk Homebound supporting statement: The patient was admitted to [facility] [place]/20-12/29/19 for infected spinal cord stimulator due to MSSA. He will need daptomycin 585 mg IV daily until 01/23/20, unless an MRI demonstrates osteomyelitis, in which case, IV therapy will continue until 02/06/20. Weekly laboratory studies while on daptomycin: CBCd, BMP, CPK, ESR, CRP Certification: Based on the above findings, I certify that this patient is confined to the home and needs intermittent retirement care, physical therapy and/or speech therapy, or continues to need occupational therapy. The patient is under my care, and I have initiated the establishment of the plan of care. The patient will be followed by a physician who will periodically review the plan of care.
--- NOTE | 2019-12-29 16:55 | PM.DS ---
DS: Providers Provider Date of admission: 12/21/19 23:30 Primary care physician: Elfego Temple. Consults: 12/22/19 02:05 Consult to Infectious Diseases Routine Consulting Provider: Gabriella Sam Reason for consultation: infected spinal cord stimulator Has provider been notified: No DS: Diagnosis Discharge Diagnosis (1) Infection of spinal cord stimulator: Status: Acute (2) Post-operative wound abscess: Status: Acute DS: Summary Hospital Course Hospital Course: from history and physical by admitting hospitalist Irasema Ralph MD, 12/21/19: 29 y/o male with PMHx of pain related to degenerative disc disease and post-laminectomy syndrome who presented from home due to pain of spinal cord stimulator implantation site pain. On 11/25 patient reports that had implantation of spinal cord stimulator for chronic pain due to generative disc and since then everything was okay until on recent days when started experiencing bulging, discharge and pain from implantation site. Patient denies any chest pain, SOB, nausea, vomiting or fever. Patient contacted Surgeon Dr Weber who recommneded for spinal cord stimulator to be removed in the OR today at 7 pm given infection. Patient on evaluation by surgery did not present with any evidence of neurologic deficit, spinal cord stimulator was removed successfully. CT was done for evaluation of spinal canal which did not elucidate any specific finding concerning for epidural absces/canal involvement for what MRI was recommended. Medicine was called for direct admission to medical floor. Patient was seen and evaluated in [facility] after transferred. Patient laying down in bed in no acute distress. ROS as above otherwise negative. Physical exam showing bandage on surgery site, rest of the exam unremarkable. No neurologic deficit indentified at present. The patient was admitted to the IM. There was no epidural abscess on contrast CT. Wound culture grew MSSA and ID was consulted. IV daptomycin was recommended, with the length of treatment to be determined by presence of underlying osteomyelitis. Unfortunately, the patient was intolerant of MRI without anesthesia due to claustrophobia and will need contrast MRI under general anesthesia, which will be scheduled as an outpatient. Blood cultures sere negative. PICC line was placed on 12/29/19 without complication. He was discharged home with VNA services to give IV daptomycin 6 mg/kg with end date of 01/23/20, unless the contrast MRI demonstrates vertebral osteomyelitis or discitis, in which case end date will be 02/06/20. While on IV antibiotics, he will have weekly labs drawn [CBCd, BMP, CPK, ESR, CRP]. He will follow up with his pain management surgeon, Dr Weber, on 01/03/20 and should continue to empty the PEREZ drain daily. He should also follow up with the infectious disease search engine optimization consultant Dr Sam. Time Spent with Patient Time attestation: Total time spent providing and/or coordinating discharge services: 45 Physical Exam Vital Signs: Vital Signs: Vital Signs Temp Pulse Resp BP Pulse Ox 12/29/19 16:00 97.6 F 112 H 18 117/82 97 12/29/19 11:54 97.0 F 78 18 131/82 97 12/29/19 08:00 97.7 F 78 18 102/72 95 12/29/19 03:46 98.7 F 69 18 102/66 97 12/28/19 23:44 97.6 F 94 20 147/84 H 94 12/28/19 19:39 97.1 F 99 18 126/73 95 Body Mass Index 28.3 Const: General: no acute distress and well developed Neck: Neck: Yes supple Resp: Effort & Inspection: normal respiratory effort Auscultation: clear to auscultation bilaterally Cardio: Rate: regular rate Rhythm: regular rhythm Back/Spine/Pelvis: Other: Lower thoracic surgical wound with PEREZ drain with serosanginous drainage Extrem: Other: RUE PICC without signs of infection DS: Data Data Completed and Pending Labs on day of discharge: Laboratory Tests 12/21/19 12/22/19 12/22/19 23:11 05:51 05:51 WBC 6.4 7.5 RBC 4.27 L 4.07 L Hgb 13.3 L 12.8 L Hct 37.4 L 35.6 L MCV 87.6 87.5 MCH 31.1 31.4 MCHC 35.6 36.0 RDW 11.3 11.2 Plt Count 217 226 MPV 9.8 10.5 Immature Gran % (Auto) 0.3 0.4 Neut % (Auto) 56.9 53.0 Lymph % (Auto) 30.2 32.0 [place] % (Auto) 8.4 9.1 Eos % (Auto) 3.3 4.3 H Baso % (Auto) 0.9 1.2 Neut # (Auto) 3.7 4.0 Lymph # (Auto) 1.9 2.4 [place] # (Auto) 0.5 0.7 Eos # (Auto) 0.2 0.3 Baso # (Auto) 0.1 0.1 Abs Immat Gran (auto) 0.02 0.03 Absolute Neuts (auto) Absolute Nucleated RBC 0.000 0.000 Nucleated RBC % (auto) 0.0 0.0 Neutrophils % (Manual) Band Neutrophils % Lymphocytes % (Manual) Monocytes % (Manual) Eosinophils % (Manual) Abs Neuts (Manual) Lymphocytes # (Manual) Monocytes # (Manual) Eosinophils # (Manual) Platelet Estimate Plt Morphology Comment RBC Morphology ESR Sodium 139 Potassium 3.6 Chloride 106 Carbon Dioxide 26 Anion Gap 11 L BUN 18 H Creatinine 0.99 Estim Creat Clear Calc 135.4 Estimated GFR > 60 Random Glucose 86 Calcium 8.6 Total Bilirubin Direct Bilirubin AST ALT Alkaline Phosphatase Total Creatine Kinase C-Reactive Protein Total Protein Albumin Vancomycin Trough 12/23/19 12/24/19 12/24/19 15:07 06:04 06:04 WBC 8.1 RBC 4.70 Hgb 14.6 Hct 42.0 MCV 89.4 MCH 31.1 MCHC 34.8 RDW 11.1 Plt Count 231 MPV 10.2 Immature Gran % (Auto) Neut % (Auto) Lymph % (Auto) [place] % (Auto) Eos % (Auto) Baso % (Auto) Neut # (Auto) Lymph # (Auto) [place] # (Auto) Eos # (Auto) Baso # (Auto) Abs Immat Gran (auto) Absolute Neuts (auto) Absolute Nucleated RBC 0.000 Nucleated RBC % (auto) 0.0 Neutrophils % (Manual) Band Neutrophils % Lymphocytes % (Manual) Monocytes % (Manual) Eosinophils % (Manual) Abs Neuts (Manual) Lymphocytes # (Manual) Monocytes # (Manual) Eosinophils # (Manual) Platelet Estimate Plt Morphology Comment RBC Morphology ESR Sodium 140 Potassium 4.3 Chloride 104 Carbon Dioxide 29 Anion Gap 11 L BUN 22 H Creatinine 1.02 Estim Creat Clear Calc 131.4 Estimated GFR > 60 Random Glucose 94 Calcium 9.3 Total Bilirubin 0.7 Direct Bilirubin 0.2 AST 14 ALT 23 Alkaline Phosphatase 63 Total Creatine Kinase C-Reactive Protein Total Protein 6.8 Albumin 4.4 Vancomycin Trough < 3.0 L 12/25/19 12/25/19 12/27/19 14:46 14:46 05:55 WBC 8.4 9.0 RBC 4.79 4.75 Hgb 14.9 14.9 Hct 41.4 L 41.3 L MCV 86.4 86.9 MCH 31.1 31.4 MCHC 36.0 36.1 H RDW 11.1 11.1 Plt Count 250 245 MPV 10.2 10.8 Immature Gran % (Auto) 0.4 Neut % (Auto) 53.9 Lymph % (Auto) 27.3 [place] % (Auto) 9.1 Eos % (Auto) 8.2 H Baso % (Auto) 1.1 Neut # (Auto) Lymph # (Auto) 2.5 [place] # (Auto) 0.8 Eos # (Auto) 0.7 H Baso # (Auto) 0.1 Abs Immat Gran (auto) 0.04 H Absolute Neuts (auto) 4.9 Absolute Nucleated RBC 0.000 0.000 Nucleated RBC % (auto) 0.0 0.0 Neutrophils % (Manual) 62 Band Neutrophils % 0 L Lymphocytes % (Manual) 23 Monocytes % (Manual) 11 Eosinophils % (Manual) 4 Abs Neuts (Manual) 5.2 Lymphocytes # (Manual) 1.9 Monocytes # (Manual) 0.9 Eosinophils # (Manual) 0.3 Platelet Estimate NORMAL Plt Morphology Comment NORMAL RBC Morphology NORMAL ESR Sodium 139 Potassium 4.0 Chloride 104 Carbon Dioxide 25 Anion Gap 14 BUN 25 H Creatinine 0.98 Estim Creat Clear Calc 136.7 Estimated GFR > 60 Random Glucose 118 H Calcium 9.3 Total Bilirubin 0.5 Direct Bilirubin 0.2 AST 15 ALT 23 Alkaline Phosphatase 66 Total Creatine Kinase C-Reactive Protein Total Protein 7.2 Albumin 4.6 Vancomycin Trough 12/27/19 12/27/19 12/28/19 05:55 05:55 05:07 WBC 9.0 RBC 4.92 Hgb 15.4 Hct 43.3 MCV 88.0 MCH 31.3 MCHC 35.6 RDW 11.2 Plt Count 243 MPV 10.5 Immature Gran % (Auto) 0.3 Neut % (Auto) 45.9 Lymph % (Auto) 32.5 [place] % (Auto) 10.3 Eos % (Auto) 9.6 H Baso % (Auto) 1.4 Neut # (Auto) Lymph # (Auto) 2.9 [place] # (Auto) 0.9 Eos # (Auto) 0.9 H Baso # (Auto) 0.1 Abs Immat Gran (auto) 0.03 Absolute Neuts (auto) 4.1 Absolute Nucleated RBC 0.000 Nucleated RBC % (auto) 0.0 Neutrophils % (Manual) Band Neutrophils % Lymphocytes % (Manual) Monocytes % (Manual) Eosinophils % (Manual) Abs Neuts (Manual) Lymphocytes # (Manual) Monocytes # (Manual) Eosinophils # (Manual) Platelet Estimate Plt Morphology Comment RBC Morphology ESR Sodium 138 Potassium 4.5 Chloride 103 Carbon Dioxide 28 Anion Gap 12 BUN 22 H Creatinine 1.01 Estim Creat Clear Calc 132.7 Estimated GFR > 60 Random Glucose 99 Calcium 9.4 Total Bilirubin 0.5 Direct Bilirubin 0.2 AST 17 ALT 27 Alkaline Phosphatase 68 Total Creatine Kinase C-Reactive Protein Total Protein 7.0 Albumin 4.6 Vancomycin Trough 12/28/19 12/28/19 12/28/19 05:07 05:07 13:03 WBC RBC Hgb Hct MCV MCH MCHC RDW Plt Count MPV Immature Gran % (Auto) Neut % (Auto) Lymph % (Auto) [place] % (Auto) Eos % (Auto) Baso % (Auto) Neut # (Auto) Lymph # (Auto) [place] # (Auto) Eos # (Auto) Baso # (Auto) Abs Immat Gran (auto) Absolute Neuts (auto) Absolute Nucleated RBC Nucleated RBC % (auto) Neutrophils % (Manual) Band Neutrophils % Lymphocytes % (Manual) Monocytes % (Manual) Eosinophils % (Manual) Abs Neuts (Manual) Lymphocytes # (Manual) Monocytes # (Manual) Eosinophils # (Manual) Platelet Estimate Plt Morphology Comment RBC Morphology ESR 10 Sodium 138 Potassium 4.8 Chloride 102 Carbon Dioxide 29 Anion Gap 12 BUN 23 H Creatinine 1.12 Estim Creat Clear Calc 119.6 Estimated GFR > 60 Random Glucose 92 Calcium 9.5 Total Bilirubin Direct Bilirubin AST ALT Alkaline Phosphatase Total Creatine Kinase C-Reactive Protein 0.90 H Total Protein Albumin Vancomycin Trough 12/28/19 13:03 WBC RBC Hgb Hct MCV MCH MCHC RDW Plt Count MPV Immature Gran % (Auto) Neut % (Auto) Lymph % (Auto) [place] % (Auto) Eos % (Auto) Baso % (Auto) Neut # (Auto) Lymph # (Auto) [place] # (Auto) Eos # (Auto) Baso # (Auto) Abs Immat Gran (auto) Absolute Neuts (auto) Absolute Nucleated RBC Nucleated RBC % (auto) Neutrophils % (Manual) Band Neutrophils % Lymphocytes % (Manual) Monocytes % (Manual) Eosinophils % (Manual) Abs Neuts (Manual) Lymphocytes # (Manual) Monocytes # (Manual) Eosinophils # (Manual) Platelet Estimate Plt Morphology Comment RBC Morphology ESR Sodium Potassium Chloride Carbon Dioxide Anion Gap BUN Creatinine Estim Creat Clear Calc Estimated GFR Random Glucose Calcium Total Bilirubin Direct Bilirubin AST ALT Alkaline Phosphatase Total Creatine Kinase 60 C-Reactive Protein Total Protein Albumin Vancomycin Trough CT L-spine without contrast 12/21/19 1. Superficial fluid with drain in place. Gas within the area of fluid. Lack of IV contrast limits evaluation of wall enhancement. 2. Small disc bulges at L4-L5 and L5-S1. Mild spinal canal narrowing of L4-L5. 3. Limited evaluation for epidural abscess on this study. MRI is more sensitive. CT T-spine with contrast 12/22/19 No abscess seen. Stable appearance to the superficial fluid collection and drain adjacent to the L2 and L3 spinous process. Discharge Plan Discharge Patient Disposition: Home Health Service Referrals: Jose Lindsey [Other] [facility] [Other] (IV supplies) [facility] [Outside] Elfego Temple MD [Primary Care Provider] - Gabriella Sam MD [Physician] - 1 Week (On IV daptomycin for MSSA infection of spinal cord stimulator) Discharge Medications: New daptomycin 350 mg recon soln 585 mg IV Q24H Qty: 92 RF: 0 Continued oxycodone-acetaminophen [Percocet] 5-325 mg tablet 1 tab PO Q4H MDD 6 pills PRN (Reason: pain) 20 Days Qty: 120 RF: 0 Discontinued prednisone 50 mg tablet 50 mg PO DAILY RF: 0 paroxetine HCl 20 mg tablet 20 mg PO DAILY RF: 0 hydroxyzine HCl 50 mg tablet 50 mg PO TID RF: 0 oxycodone-acetaminophen 5-325 mg tablet 1 tab PO QID PRN (Reason: Pain) RF: 0 cephalexin 500 mg capsule 1,000 mg PO Q6H RF: 0 hydroxyzine HCl 25 mg tablet 25 mg PO TID RF: 0 escitalopram oxalate 5 mg tablet 5 mg PO DAILY RF: 0 sertraline 25 mg tablet 25 mg PO DAILY RF: 0 Discharge Orders: Discharge Order (Routine); Ordered 12/29/19 Ordered By: Carroll Ty Diet: advance to your usual diet Activity on Discharge: As tolerated Patient Instructions: Daptomycin (By injection), How to Care for Your PICC (Peripherally Inserted Central Catheter) (DC) Other Ambulatory Orders: Basic Metabolic Panel (QWEEK) Timeframe: 20200105 Facility: [facility] - Location: Laboratory Ordered By: Carroll Ty Basic Metabolic Panel (QWEEK) Timeframe: 20200112 Facility: [facility] - Location: Laboratory Ordered By: Carroll Ty Basic Metabolic Panel (QWEEK) Timeframe: 20200119 Facility: [facility] - Location: Laboratory Ordered By: Carroll Ty Basic Metabolic Panel (QWEEK) Timeframe: 20200126 Facility: [facility] - Location: Laboratory Ordered By: Carroll Ty Basic Metabolic Panel (QWEEK) Timeframe: 20200202 Facility: [facility] - Location: Laboratory Ordered By: Carroll Ty Basic Metabolic Panel (QWEEK) Timeframe: 20200209 Facility: [facility] - Location: Laboratory Ordered By: Carroll Ty Complete Blood Count Auto Diff (QWEEK) Timeframe: 20200105 Facility: [facility] - Location: Laboratory Ordered By: Carroll Ty Complete Blood Count Auto Diff (QWEEK) Timeframe: 20200112 Facility: [facility] - Location: Laboratory Ordered By: Carroll Ty Complete Blood Count Auto Diff (QWEEK) Timeframe: 20200119 Facility: [facility] - Location: Laboratory Ordered By: Carroll Ty Complete Blood Count Auto Diff (QWEEK) Timeframe: [id number] Facility: [facility] - Location: Laboratory Ordered By: Carroll Ty Complete Blood Count Auto Diff (QWEEK) Timeframe: 20200202 Facility: [facility] - Location: Laboratory Ordered By: Carroll Ty Complete Blood Count Auto Diff (QWEEK) Timeframe: 20200209 Facility: [facility] - Location: Laboratory Ordered By: Carroll Ty Creatine Kinase Total (QWEEK) Timeframe: 20200105 Facility: [facility] - Location: Laboratory Ordered By: Jaehyun Karson Creatine Kinase Total (QWEEK) Timeframe: 20200112 Facility: [facility] - Location: Laboratory Ordered By: Jaehyun Karson Creatine Kinase Total (QWEEK) Timeframe: 20200119 Facility: [facility] - Location: Laboratory Ordered By: Jaehyun Karson Creatine Kinase Total (QWEEK) Timeframe: [id number] Facility: [facility] - Location: Laboratory Ordered By: Jaehyun Karson Creatine Kinase Total (QWEEK) Timeframe: 20200202 Facility: [facility] - Location: Laboratory Ordered By: Jaehyun Karson Creatine Kinase Total (QWEEK) Timeframe: 20200209 Facility: [facility] - Location: Laboratory Ordered By: Jaehyun Karson C Reactive Protein (QWEEK) Timeframe: [id number] Facility: [facility] - Location: Laboratory Ordered By: Jaehyun Karson C Reactive Protein (QWEEK) Timeframe: 20200112 Facility: [facility] - Location: Laboratory Ordered By: Jaehyun Karson C Reactive Protein (QWEEK) Timeframe: 20200119 Facility: [facility] - Location: Laboratory Ordered By: Jaehyun Karson C Reactive Protein (QWEEK) Timeframe: [id number] Facility: [facility] - Location: Laboratory Ordered By: Jaehyun Karson C Reactive Protein (QWEEK) Timeframe: 20200202 Facility: [facility] - Location: Laboratory Ordered By: Jaehyun Karson C Reactive Protein (QWEEK) Timeframe: 20200209 Facility: [facility] - Location: Laboratory Ordered By: Jaehyun Karson Erythrocyte Sedimentation Rate (QWEEK) Timeframe: 20200105 Facility: [facility] - Location: Laboratory Ordered By: Jaehyun Karson Erythrocyte Sedimentation Rate (QWEEK) Timeframe: 20200112 Facility: [facility] - Location: Laboratory Ordered By: Jaehyun Karson Erythrocyte Sedimentation Rate (QWEEK) Timeframe: 20200119 Facility: [facility] - Location: Laboratory Ordered By: Jaehyun Karson Erythrocyte Sedimentation Rate (QWEEK) Timeframe: [id number] Facility: [facility] - Location: Laboratory Ordered By: Carroll Ty Erythrocyte Sedimentation Rate (QWEEK) Timeframe: 20200202 Facility: [facility] - Location: Laboratory Ordered By: Carroll Ty Erythrocyte Sedimentation Rate (QWEEK) Timeframe: 20200209 Facility: [facility] - Location: Laboratory Ordered By: Carroll Ty Visit Report Forms: Patient Portal Discharge page Care Plan Goals: see Plan of treatment Health Concerns: see Plan of treatment Plan of Treatment: Dr Weber will contact you to schedule MRI of the T-spine with and without contrast under general anesthesia. Please follow up with Dr Jeffrey Weber on Friday01/03/20 at 12:30pm. Until then, please empty the PEREZ drain daily and measure the amount of drainage. You will be getting daptomycin 585 mg IV daily through your PICC line. Anticipated end date is 01/23/20. However, if the MRI shows osteomyelitis, end date will be 02/06/20. You will be getting weekly laboratory studies while on IV daptomycin: CBCd, BMP, CPK, ESR, CRP. Please follow up with Dr Julissa Sam, Infectious Disease, at [facility], in 1-2 weeks: [facility] [address], [address], [place] [address]
== END 2019-12-29 18:28 | disposition home health service (06) | DRG 711 ==
LOC: HO.S3 23:31 → HO.IMC 23:45
PROVIDERS: Anesthesiology; Family Medicine; Internal Medicine; Admitting Provider Internal Medicine; PCP Family Medicine; Visit Provider Family Medicine
DX: T85.738A Infection and inflammatory reaction due to other nervous system device, implant or graft, initial encounter (principal); B95.61 Methicillin susceptible Staphylococcus aureus infection as the cause of diseases classified elsewhere; M96.1 Postlaminectomy syndrome, not elsewhere classified; Z88.5 Allergy status to narcotic agent; Z23 Encounter for immunization
CPT/HCPCS: 36415; 36573; 72129; 72131; 80048; 80076; 80202; 82550; 85007; 85025; 85027; 85652; 86140; 87040; 87071; 87147; 87186; 87205; 90686; 99214; C1751; J0131; J0878; J1170; J1200; J2270; J2405; J3010; J3370

== ENCOUNTER → 2020-01-03 11:56 | Outpatient (BNVA) | payer OTHER, SELFPAY | PROVIDERS: PCP Family Medicine; Visit Provider Anesthesiology | DX: T85.733D Infection and inflammatory reaction due to implanted electronic neurostimulator of spinal cord, electrode (lead), subsequent encounter (principal); G06.2 Extradural and subdural abscess, unspecified | CPT/HCPCS: 99213 ==

== ENCOUNTER 2020-01-03 14:14 | Outpatient (REF) | payer OTHER, SELFPAY ==
[2020-01-03 14:20] LABS: MANUAL DIFF FLAG NO
[2020-01-03 14:26] LABS: Basophils Absolute Auto 0.1 X10*3/uL (0.0-0.2); Basophils Percent Auto 1.5 % (0-2); Eosinophils Absolute Auto 0.5 X10*3/uL (0.0-0.4); Eosinophils Percent Auto 9.7 % (0-4); Hematocrit 39.3 % (42-52); Hemoglobin 13.6 g/dl (14.0-18.0); Imm Gran Abs Auto 0.01 X10*3/uL (0.00-0.03); Imm Gran Pct Auto 0.2 % (0.0-0.4); Lymphocytes Absolute Auto 2.2 X10*3/uL (1.2-4.9); Lymphocytes Percent Auto 40.9 % (20-40); Mean Corpuscular HGB Conc 34.6 g/dl (31.0-36.0); Mean Corpuscular Hemoglobin 30.6 pg (27.0-33.0); Mean Corpuscular Volume 88.5 fL (80-98); Mean Platelet Volume 10.9 fL (9.4-12.4); Monocytes Absolute Auto 0.6 X10*3/uL (0.1-1.2); Monocytes Percent Auto 11.4 % (2-11); Neutrophils Absolute Auto 1.9 X10*3/uL (2.0-8.3); Neutrophils Percent Auto 36.3 % (45-73); Platelet Count 226 X10*3/uL (160-400); Red Blood Count 4.44 X10*6/uL (4.60-5.80); Red Cell Distribution Width 11.3 % (11.0-16.0); White Blood Count 5.3 X10*3/uL (4.8-10.8)
[2020-01-03 15:16] LABS: Erythrocyte Sedimentation Rate 12 MM/HR (0-15)
[2020-01-03 15:25] LABS: Anion Gap 15 (12-20); Blood Urea Nitrogen 18 mg/dL (9-16); C Reactive Protein 1.94 mg/dL (< or = 0.50); Calcium 9.1 mg/dL (8.4-10.2); Carbon Dioxide 25 mmol/L (22-29); Chloride 106 mmol/L (96-108); Estimated Glomerular Filt Rate > 60; Glucose Random 83 mg/dL (60-115); Potassium 4.1 mmol/l (3.3-5.1); Sodium 142 mmol/L (135-145)
== END 2020-01-03 14:15 | disposition home or self-care (01) ==
LOC: HO.LNP 14:14
PROVIDERS: Visit Provider Family Medicine
DX: T85.733A Infection and inflammatory reaction due to implanted electronic neurostimulator of spinal cord, electrode (lead), initial encounter (principal)
CPT/HCPCS: 36415; 80048; 82550; 85025; 85652; 86140

== ENCOUNTER 2020-01-10 14:28 | Outpatient (REF) | payer OTHER, SELFPAY | END 2020-01-10 14:29 | disposition home or self-care (01) | LOC: HO.LNP 14:28 | PROVIDERS: Referring Provider Anesthesiology; Visit Provider Internal Medicine | DX: Z13.89 Encounter for screening for other disorder (principal) ==

== ENCOUNTER → 2020-01-11 15:54 | Outpatient (BNVA) | payer OTHER, SELFPAY | PROVIDERS: PCP Family Medicine; Referring Provider Family Medicine; Visit Provider Anesthesiology | DX: T85.733D Infection and inflammatory reaction due to implanted electronic neurostimulator of spinal cord, electrode (lead), subsequent encounter (principal); G06.2 Extradural and subdural abscess, unspecified | CPT/HCPCS: 99212 ==

== ENCOUNTER 2020-01-11 17:04 | Emergency (ER) | payer OTHER, SELFPAY ==
[2020-01-11 17:08] VITALS: BP 147/94; PULSE 80; RESP 18; TEMP 37.3; O2SAT 98; BMI 27.7
--- NOTE | 2020-01-11 19:41 | CT_ITS ---
EXAMINATION: CT THORACIC SPINE WITHOUT AND WITH CONTRAST CT LUMBAR SPINE WITHOUT AND WITH CONTRAST CLINICAL INFORMATION: Status post neurostimulator. Postoperative fluid collection. COMPARISON: Thoracic and lumbar spine CTs from 12/22/2019 and 12/21/2019. TECHNIQUE: Multidetector helical imaging of the thoracic and lumbar spine was obtained without and following the administration of 85 mL of Omnipaque 350 intravenous contrast. . Multiple axial reformats and coronal/sagittal reconstructions were created the technologist workstation for review. DLP: 2464 mGy-cm FINDINGS: Transitional vertebral anatomy. There are 12 thoracic type vertebrae with well-formed sets of paired ribs. There is a single vertebral segment with bilateral riblets versus articulated transverse processes. There are 5 nonrib-bearing lumbar-type vertebrae. For the purposes of this report, a classic 12 thoracic type and 5 lumbar type nomenclature will be utilized. In this setting, there is lumbarization of S1 with an S1-S2 disc space. Thoracic Spine: Minimal right convex curvature of the thoracic spine. Otherwise, normal anatomic alignment. No evidence of acute fracture or traumatic subluxation. The vertebral body heights are maintained. The intervertebral disc spaces are maintained. No suspicious lytic or sclerotic osseous lesions. Minimal disc herniations are demonstrated throughout the thoracic spine. Mild multilevel facet joint arthropathy throughout the thoracic spine (moderate at T8-T9). Moderate osseous encroachment on the neural foramina at T8-T9. No demonstrated spinal canal stenosis on this limited exam without intrathecal contrast. No demonstrated epidural collection. No significant abnormalities of the paraspinal musculature. Right-sided PICC line. Limited evaluation of the intrathoracic structures without significant abnormalities. The thoracic aorta is of normal contour and caliber. No evidence for dissection. Lumbar Spine: Normal anatomic alignment. No evidence of acute fracture or traumatic subluxation. The mild degenerative disc disease at L3-L4 and L4-L5 with partial loss of disc space. Small Schmorl's node within the inferior endplate of L3. Otherwise, the vertebral body heights are largely maintained. No suspicious lytic or sclerotic osseous lesions. No osseous erosion. No demonstrated epidural collection. Interval removal of a drainage catheter in the subcutaneous tissues of the back. There remains a small amorphous soft tissue edema without peripheral enhancement in the subcutaneous tissues of the back at the levels of L2-L3, measuring 2.1 x 1.8 x 4.2 cm. Strand-like subcutaneous edema also extends to the left greater than right inferiorly at the level of L5-S1 with small amount of subcutaneous gas posterior to the left iliac bone. No discrete drainable fluid collection. No demonstrated radiopaque foreign bodies. Limited evaluation of the intra-abdominal structures without significant abnormalities. Status post appendectomy. The abdominal aorta is of normal contour and caliber. AXIAL SPINAL LEVELS: L1-L2: Normal annular contour. There is mild bilateral facet joint arthropathy. There is no neural foraminal stenosis. There is no demonstrated spinal canal stenosis. L2-L3: Normal annular contour. There is mild bilateral facet joint arthropathy. There is no neural foraminal stenosis. There is no spinal canal stenosis. L3-L4: Mild diffuse disc bulge. There is mild bilateral facet joint arthropathy. There is mild bilateral neural foraminal stenosis. There is no demonstrated spinal canal stenosis. L4-L5: Moderate diffuse disc bulge. There is mild to moderate bilateral facet joint arthropathy with ligamentum flavum hypertrophy. There is moderate bilateral neural foraminal stenosis. There is no demonstrated spinal canal stenosis. L5-S1: Moderate diffuse disc bulge. There is moderate bilateral facet joint arthropathy with ligamentum flavum hypertrophy. There is moderate bilateral neural foraminal stenosis. There is there appears to be mild spinal canal stenosis. S1-S2: Mild diffuse disc bulge. There is mild bilateral facet joint arthropathy. There is mild bilateral neural foraminal stenosis. There is no spinal canal stenosis. CT/CT thoracic spine wo/w con IMPRESSION: Transitional vertebral anatomy. There are 12 thoracic type vertebrae with well-formed sets ribs, a single thoracolumbar junction vertebral segment with bilateral riblets versus articulated transverse processes, and 5 nonrib-bearing lumbar-type vertebrae. For the purposes of this exam, the classic 12 thoracic and 5 lumbar nomenclature is utilized with lumbarization of S1. Detail level verification is recommended prior to any procedures. There remains phlegmonous soft tissue edema within the posterior subcutaneous tissues of the back at the levels of L2-L3. To a lesser degree, there is also strand-like edema in the subcutaneous tissues on the left at the level of L5-S1 with small amount of subcutaneous gas. No discrete drainable fluid collection demonstrated. No demonstrated tracking of these regions of edema to the deeper soft tissues. Mild multilevel degenerative spondyloarthropathy of the thoracic spine as described in detail above. Most notably, there is moderate osseous encroachment on the T8-T9 neural foramina. On this limited exam without intrathecal contrast, there is no demonstrated thoracic spinal canal stenosis. Moderate multilevel degenerative spondylosis arthropathy of the lumbar spine as described in detail above. Most notably, there are moderate neural foraminal stenosis at L4-L5 and L5-S1. On this limited exam without intrathecal contrast, there appears to be mild spinal canal stenosis at L5-S1.
[2020-01-11 19:53] LABS: MANUAL DIFF FLAG NO
[2020-01-11 19:56] LABS: Basophils Absolute Auto 0.1 X10*3/uL (0.0-0.2); Basophils Percent Auto 1.1 % (0-2); Eosinophils Absolute Auto 0.5 X10*3/uL (0.0-0.4); Eosinophils Percent Auto 5.5 % (0-4); Hematocrit 40.7 % (42-52); Hemoglobin 14.3 g/dl (14.0-18.0); Imm Gran Abs Auto 0.03 X10*3/uL (0.00-0.03); Imm Gran Pct Auto 0.4 % (0.0-0.4); Lymphocytes Absolute Auto 2.3 X10*3/uL (1.2-4.9); Lymphocytes Percent Auto 28.2 % (20-40); Mean Corpuscular HGB Conc 35.1 g/dl (31.0-36.0); Mean Corpuscular Hemoglobin 30.8 pg (27.0-33.0); Mean Corpuscular Volume 87.5 fL (80-98); Mean Platelet Volume 10.1 fL (9.4-12.4); Monocytes Absolute Auto 0.6 X10*3/uL (0.1-1.2); Monocytes Percent Auto 7.4 % (2-11); Neutrophils Absolute Auto 4.7 X10*3/uL (2.0-8.3); Neutrophils Percent Auto 57.4 % (45-73); Platelet Count 260 X10*3/uL (160-400); Red Blood Count 4.65 X10*6/uL (4.60-5.80); Red Cell Distribution Width 11.2 % (11.0-16.0); White Blood Count 8.1 X10*3/uL (4.8-10.8)
--- NOTE | 2020-01-11 19:58 | ED.BACK ---
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 Weber for increasing low back pain and subjective leg weakness for last 1 week. Apparently patient had post laminectomy syndrome and had a spinal cord stimulator placed on 11/25 leads of which got infected and were removed on 12/20 and which grew MSSA and patient on daptomycin since then through the PICC line. After 1 week of antibiotic patient started noticing mid lower back pain radiating to the front of abdomen specially 1 movements and coughing. For last 1 week notice subjective weakness in the legs and low-grade fever for last 2-3 days patient was seen by Dr. Weber and sent him here for further evaluation including the CT scan with contrast patient is very claustrophobic for MRI and is scheduled for tomorrow under general anesthesia patient is ambulatory without any assistance and ambulated to the ER without any significant discomfort Related Data Previous Rx's Medication Instructions Recorded daptomycin 585 mg IV Q24H #92 ea 12/29/19 oxycodone-acetaminophen 5 mg-325 1 tab PO Q4H PRN 20 Days #120 tab 01/07/20 mg tablet MDD 6 pills hydroxyzine HCl 25 mg tablet 25 mg PO TID PRN 30 Days #90 tab 01/11/20 Allergies Allergy/AdvReac Type Severity Reaction Status Date / Time tramadol [TRAMADOL] Allergy Unknown SEIZURE Verified 12/21/19 19:23 transparent dressing Allergy Unknown Rash Verified 12/21/19 18:52 [Tegaderm] Review of Systems Review of Systems: REVIEW OF SYSTEMS: Pertinent positives and negatives are stated above in the history. GEN: no chills, fatigue HEENT: no nasal congestion, sore throat, ear pain NEURO: no headache, dizziness, focal weakness PULM: no cough, shortness of breath CV: no chest pain, palpitations, LE edema ABD: no abdominal pain, nausea, vomiting, diarrhea : no dysuria, urgency, frequency SKIN: no rash ROS otherwise negative x 10 PMFSH Past Medical History Medical History Mild asthma Post laminectomy syndrome Right knee meniscal tear Spinal cord stimulator dysfunction Wound infection Surgical History Boxer's fracture History of appendectomy History of back surgery History of incisional hernia repair Status post lumbar microdiscectomy Social History Social History Household Members: Spouse and Children Housing: House Alcohol intake: never Smoking Status: Former smoker Smoked in Last 30 Days: No Use of substances other than those prescribed or required for medical reasons: No Advance Directives: No Advance Directives Information Provided: No service: No Current occupational status: unemployed Physical Exam Vital Signs: Vital Signs: Vital Signs Temp Pulse Resp BP Pulse Ox 01/11/20 21:46 98.1 F 69 18 116/77 99 01/11/20 20:11 76 16 124/85 96 01/11/20 20:09 16 01/11/20 17:08 99.1 F 80 18 147/94 H 98 Body Mass Index 27.7 Const: General: cooperative and healthy appearing Nutritional Appearance: average body habitus Orientation/consciousness: oriented to person, oriented to place and oriented to time Limitations: no limitations HENMT: Head: Yes normal to inspection Ears: hearing grossly normal bilaterally Eyes: General: appearance normal, both eyes and all related structures Neck: Neck: Yes normal visual inspection Resp: Effort & Inspection: normal respiratory effort Auscultation: clear to auscultation bilaterally Cardio: Rate: regular rate Rhythm: regular rhythm Heart sounds: S1 normal heart sound present and S2 normal heart sound present GI: Inspection: Yes normal to inspection Palpation (GI): Soft to palpation, Firmness to palpation present (GI) and nontender Auscultation: normal bowel sounds Back/Spine/Pelvis: Back: back tenderness ( tenderness T6-L2 area which is diffusely tender without any skin changes) Cervical Spine: normal cervical lordosis and cervical ROM normal Thoracic/Lumbar Spine: Thoracic/lumbar spine scar(s) (post op), straight leg raise negative bilaterally, pain with thoraco-lumbar ROM, paraspinal muscle tenderness, thoraco-lumbar spasm, thoracic spinal tenderness at T6 and at T7 and lumbar spinal tenderness at L1 and at L2 Neuro: General: oriented to person, oriented to place, oriented to time, CN's II-XI intact bilaterally and deep tendon reflexes 2+ bilaterally Cognition (Neuro): normal cognition Gait exam (Neuro): Normal gait present Motor exam (neuro): 5/5 motor strength present throughout and Other motor observations present (SLR negative b/l leg) Sensory Exam: Normal double simultaneous stimulation for sensation Deep tendon reflexes (DTR's): Right patellar reflex intensity grade: 2+ and Left patellar reflex intensity grade: 2+ Course Course Course Narrative: patient with stable labs CT scan with IV contrast did not show any significant fluid collection. Patient is scheduled for MRI in the morning under anesthesia to rule out any epidural abscess or fluid collection. Patient has no focal deficit at this time ambulatory in the ER already received daptomycin tonight will admit patient for back pain control and MRI in the morning MDM - Back Pain/Injury Lab Data Result diagrams: 01/11/20 19:45 01/11/20 19:45 Labs: Lab Results 01/11/20 01/11/20 01/11/20 Range/Units 19:45 19:45 19:45 WBC 8.1 (4.8-10.8) X10*3/uL RBC 4.65 (4.60-5.80) X10*6/uL Hgb 14.3 (14.0-18.0) g/dl Hct 40.7 L (42-52) % MCV 87.5 (80-98) fL MCH 30.8 (27.0-33.0) pg MCHC 35.1 (31.0-36.0) g/dl RDW 11.2 (11.0-16.0) % Plt Count 260 (160-400) X10*3/uL MPV 10.1 (9.4-12.4) fL Immature Gran % (Auto) 0.4 (0.0-0.4) % Neut % (Auto) 57.4 (45-73) % Lymph % (Auto) 28.2 (20-40) % [place] % (Auto) 7.4 (2-11) % Eos % (Auto) 5.5 H (0-4) % Baso % (Auto) 1.1 (0-2) % Lymph # (Auto) 2.3 (1.2-4.9) X10*3/uL [place] # (Auto) 0.6 (0.1-1.2) X10*3/uL Eos # (Auto) 0.5 H (0.0-0.4) X10*3/uL Baso # (Auto) 0.1 (0.0-0.2) X10*3/uL Abs Immat Gran (auto) 0.03 (0.00-0.03) X10*3/uL Absolute Neuts (auto) 4.7 (2.0-8.3) X10*3/uL Absolute Nucleated RBC 0.000 (0.0-0.012) X10*3/uL Nucleated RBC % (auto) 0.0 (0.0-0.2) /100WBC PT 12.6 (10.8-13.0) SEC INR 1.1 (0.9-1.1) Sodium 140 (135-145) mmol/L Potassium 3.7 (3.3-5.1) mmol/l Chloride 103 (96-108) mmol/L Carbon Dioxide 27 (22-29) mmol/L Anion Gap 14 (12-20) BUN 21 H (9-16) mg/dL Creatinine 1.05 (0.5-1.4) mg/dL Estim Creat Clear Calc 117.3 Estimated GFR > 60 Random Glucose 93 (60-115) mg/dL Lactic Acid (0.5-2.0) mmol/L Calcium 9.4 (8.4-10.2) mg/dL 01/11/20 Range/Units 19:45 WBC (4.8-10.8) X10*3/uL RBC (4.60-5.80) X10*6/uL Hgb (14.0-18.0) g/dl Hct (42-52) % MCV (80-98) fL MCH (27.0-33.0) pg MCHC (31.0-36.0) g/dl RDW (11.0-16.0) % Plt Count (160-400) X10*3/uL MPV (9.4-12.4) fL Immature Gran % (Auto) (0.0-0.4) % Neut % (Auto) (45-73) % Lymph % (Auto) (20-40) % [place]ilton % (Auto) (2-11) % Eos % (Auto) (0-4) % Baso % (Auto) (0-2) % Lymph # (Auto) (1.2-4.9) X10*3/uL [place] # (Auto) (0.1-1.2) X10*3/uL Eos # (Auto) (0.0-0.4) X10*3/uL Baso # (Auto) (0.0-0.2) X10*3/uL Abs Immat Gran (auto) (0.00-0.03) X10*3/uL Absolute Neuts (auto) (2.0-8.3) X10*3/uL Absolute Nucleated RBC (0.0-0.012) X10*3/uL Nucleated RBC % (auto) (0.0-0.2) /100WBC PT (10.8-13.0) SEC INR (0.9-1.1) Sodium (135-145) mmol/L Potassium (3.3-5.1) mmol/l Chloride (96-108) mmol/L Carbon Dioxide (22-29) mmol/L Anion Gap (12-20) BUN (9-16) mg/dL Creatinine (0.5-1.4) mg/dL Estim Creat Clear Calc Estimated GFR Random Glucose (60-115) mg/dL Lactic Acid 0.8 (0.5-2.0) mmol/L Calcium (8.4-10.2) mg/dL Discharge Plan Discharge Clinical Impression: Lumbar radiculopathy, Wound infection Patient Disposition: Admitted As Inpatient
[2020-01-11 20:03] LABS: INTERNATIONAL NORM RATIO 1.1 (0.9-1.1); Prothrombin Time 12.6 SEC (10.8-13.0)
[2020-01-11 20:09] VITALS: RESP 16
[2020-01-11] MEDS: Morphine Sulfate 4 MG/ML CARTRIDGE IVPUSH (20:09)
[2020-01-11] MEDS: 0.9 % Sodium Chloride 1,000 ML 999 ML IVCONT (20:09)
[2020-01-11] MEDS: ondansetron HCL 4 MG/2 ML VIAL IVPUSH (20:09)
[2020-01-11 20:10] LABS: Lactic Acid 0.8 mmol/L (0.5-2.0)
[2020-01-11 20:11] VITALS: BP 124/85; PULSE 76; RESP 16; O2SAT 96
[2020-01-11 20:14] LABS: Anion Gap 14 (12-20); Carbon Dioxide 27 mmol/L (22-29); Chloride 103 mmol/L (96-108); Potassium 3.7 mmol/l (3.3-5.1); Sodium 140 mmol/L (135-145)
[2020-01-11 20:15] LABS: Blood Urea Nitrogen 21 mg/dL (9-16); Calcium 9.4 mg/dL (8.4-10.2); Creatinine Clr Calc Pharmacy 117.3; Estimated Glomerular Filt Rate > 60; Glucose Random 93 mg/dL (60-115)
[2020-01-11] MEDS: iohexoL 350 MG/ML 100 ML INFUS..BTL IV (21:18)
--- NOTE | 2020-01-11 21:42 | PC.NURSE ---
pharmacy called for antibiotic
[2020-01-11 21:46] VITALS: BP 116/77; PULSE 69; RESP 18; TEMP 36.7; O2SAT 99
[2020-01-11 22:00] VITALS: BP 114/80; PULSE 59; RESP 16; TEMP 36.6
[2020-01-11] MEDS: oxyCODONE HCl Immed Release 5 MG TABLET 10 MG PO (22:25)
[2020-01-11] MEDS: DAPTOmycin 500 MG in 0.9 % Sodium Chloride 50 ML 100 MG IV (22:51)
== END 2020-01-12 00:25 | disposition home or self-care (01) ==
PROVIDERS: Emergency Provider Internal Medicine; PCP Nurse Practitioner Family
DX: M96.1 Postlaminectomy syndrome, not elsewhere classified (principal); M54.5 Low back pain; M79.662 Pain in left lower leg; R50.9 Fever, unspecified; M79.661 Pain in right lower leg; Z79.899 Other long term (current) drug therapy
CPT/HCPCS: 36415; 72130; 72133; 80048; 83605; 85025; 85610; 87040; 96361; 96365; 96375; 99284; J0878; J2270; J2405; Q9967

== ENCOUNTER 2020-01-12 08:34 | Outpatient (REF) | payer OTHER, SELFPAY ==
[2020-01-10 14:35] LABS: MANUAL DIFF FLAG NO
[2020-01-10 14:51] LABS: Basophils Absolute Auto 0.1 X10*3/uL (0.0-0.2); Basophils Percent Auto 1.6 % (0-2); Eosinophils Absolute Auto 0.4 X10*3/uL (0.0-0.4); Eosinophils Percent Auto 7.2 % (0-4); Hematocrit 37.6 % (42-52); Hemoglobin 13.1 g/dl (14.0-18.0); Imm Gran Abs Auto 0.02 X10*3/uL (0.00-0.03); Imm Gran Pct Auto 0.4 % (0.0-0.4); Lymphocytes Absolute Auto 1.6 X10*3/uL (1.2-4.9); Lymphocytes Percent Auto 29.1 % (20-40); Mean Corpuscular HGB Conc 34.8 g/dl (31.0-36.0); Mean Corpuscular Hemoglobin 30.9 pg (27.0-33.0); Mean Corpuscular Volume 88.7 fL (80-98); Mean Platelet Volume 10.9 fL (9.4-12.4); Monocytes Absolute Auto 0.5 X10*3/uL (0.1-1.2); Neutrophils Absolute Auto 2.9 X10*3/uL (2.0-8.3); Neutrophils Percent Auto 52.7 % (45-73); Platelet Count 240 X10*3/uL (160-400); Red Blood Count 4.24 X10*6/uL (4.60-5.80); Red Cell Distribution Width 11.4 % (11.0-16.0); White Blood Count 5.5 X10*3/uL (4.8-10.8)
[2020-01-10 15:34] LABS: Anion Gap 12 (12-20); Blood Urea Nitrogen 20 mg/dL (9-16); Calcium 8.8 mg/dL (8.4-10.2); Carbon Dioxide 25 mmol/L (22-29); Chloride 107 mmol/L (96-108); Erythrocyte Sedimentation Rate 10 MM/HR (0-15); Estimated Glomerular Filt Rate > 60; Glucose Random 97 mg/dL (60-115); Potassium 4.1 mmol/l (3.3-5.1); Sodium 140 mmol/L (135-145)
--- NOTE | 2020-01-11 14:49 | HO.ANESPROP2 ---
Documented by User: Bri Meneses 01/11/20 14:54 HPI - Anesthesia Eval Consult details Narrative: 29yo M for MRI with anesthesia (claustrophobic) [facility] Past Medical History Medical History Mild asthma Post laminectomy syndrome Right knee meniscal tear Spinal cord stimulator dysfunction Wound infection Surgical History Surgical History Boxer's fracture History of appendectomy History of back surgery History of incisional hernia repair Status post lumbar microdiscectomy Social History Social History Household Members: Spouse and Children Housing: House Alcohol intake: never Smoking Status: Never smoker Use of substances other than those prescribed or required for medical reasons: No Advance Directives: No Advance Directives Information Provided: Yes service: No Current occupational status: unemployed Meds Allergies Allergy/AdvReac Type Severity Reaction Status Date / Time tramadol [TRAMADOL] Allergy Unknown SEIZURE Verified 12/21/19 19:23 transparent dressing Allergy Unknown Rash Verified 12/21/19 18:52 [Tegaderm] Exam Exam Date and Time: January 11, 2020 1449 Pertinent Lab Results Pertinent Lab Results: Laboratory Tests 01/10/20 01/10/20 01/10/20 13:00 13:00 13:00 WBC 5.5 RBC 4.24 L Hgb 13.1 L Hct 37.6 L MCV 88.7 MCH 30.9 MCHC 34.8 RDW 11.4 Plt Count 240 MPV 10.9 Immature Gran % (Auto) 0.4 Neut % (Auto) 52.7 Lymph % (Auto) 29.1 [place] % (Auto) 9.0 Eos % (Auto) 7.2 H Baso % (Auto) 1.6 Lymph # (Auto) 1.6 [place] # (Auto) 0.5 Eos # (Auto) 0.4 Baso # (Auto) 0.1 Abs Immat Gran (auto) 0.02 Absolute Neuts (auto) 2.9 Absolute Nucleated RBC 0.000 Nucleated RBC % (auto) 0.0 ESR 10 Sodium 140 Potassium 4.1 Chloride 107 Carbon Dioxide 25 Anion Gap 12 BUN 20 H Creatinine 0.90 Estim Creat Clear Calc TNP Estimated GFR > 60 Random Glucose 97 Calcium 8.8 Total Creatine Kinase 103 Assessment and Plan Assessment Anesthesia Assessment: Chart Reviewed Documented by User: Taisha Archuleta 01/12/20 09:31 PMFSH Past Medical History Medical History Mild asthma Post laminectomy syndrome Right knee meniscal tear Spinal cord stimulator dysfunction Wound infection Surgical History Surgical History Boxer's fracture History of appendectomy History of back surgery History of incisional hernia repair Status post lumbar microdiscectomy Social History Social History Household Members: Spouse and Children Housing: House Alcohol intake: never Smoking Status: Never smoker Use of substances other than those prescribed or required for medical reasons: No Advance Directives: No Advance Directives Information Provided: Yes service: No Current occupational status: unemployed Meds Allergies Allergy/AdvReac Type Severity Reaction Status Date / Time tramadol [TRAMADOL] Allergy Unknown SEIZURE Verified 12/21/19 19:23 transparent dressing Allergy Unknown Rash Verified 12/21/19 18:52 [Tegaderm] Exam Airway Mallampati Class: II TM Dist: >3cm Neck ROM: Full Assessment and Plan Assessment Anesthesia Assessment: Anesthesia Plan Discussed and Chart Reviewed Final Anesthetic Review NPO: Yes ASA Class: II Final Preanesthetic Review: No Changes in Pt Med Stat, Meds/Allgs Chart Reviewed, Consent Obtained/Reviewed and Anes Risks/Benef Reviewed Patient Risk: Low Procedure Risk: Low Assessment/Block/Sedation in SS: Assess/Block/Sedation-SS Anesthetic Plan Anesthetic Plan: GA Disposition: Standard PACU
[2020-01-12 08:48] VITALS: BP 122/73; PULSE 88; RESP 16; TEMP 36.5; O2SAT 97; BMI 27.7
[2020-01-12] MEDS: Lactated Ringers 1,000 ML 100 ML IVCONT (09:00)
--- NOTE | 2020-01-12 09:26 | MR_ITS ---
EXAMINATION: MR THORACIC SPINE WITHOUT AND WITH CONTRAST CLINICAL INFORMATION: Removal of spinal stimulator. Back pain. Rule out abscess COMPARISON: None TECHNIQUE: MRI of the thoracic spine was obtained using routine sequences with and without contrast. Intravenous contrast: 10 mL Gadavist. FINDINGS: Several seed core operator views were performed of cervical and thoracic spine from level indication. The first vitamin E marker is at T2-T3 disc level. The subsequent seed core operator view reveals a horizontal arrow at T6 vertebra and conus at the T12-L1 disc level. Included in thoracolumbar spine imaging is from mid T5 through mid L4 vertebra. There is maintained thoracolumbar curvature. The vertebral heights, alignment, disc heights and disc signal is maintained normal. Conus medullaris terminates at T12 and L1. No abnormal enhancement seen in the cord or the conus. The thecal sac is capacious throughout the imaged thoracolumbar spine. Pre and post contrast images reveal no abnormal enhancement in the spinal canal to suggest any intraspinal abscess, mass, or edema. Posterior to L3-L4 vertebra is T2 signal with enhancement likely where a stimulator was placed and likely postsurgical changes. There is no visible disc bulge, herniation, or neural foraminal narrowing. No abnormality seen involving the T8-T9 vertebra by MRI. There is likely minimal bulge at L3-L4 disc level but no disc herniation or spinal stenosis. The neural foramina on the visualized lumbar spine appears widely patent. Incidentally visualized is minimal bilateral lower lobe patchy opacity, ? infiltrate versus compressive atelectasis. Correlate with 2 view chest if clinically indicated. MR/MR thoracic spine wo/w con IMPRESSION: 1. No evidence of thoracolumbar spine abscess on the visualized MRI spine There is no paravertebral soft tissue mass or abscess either. 2. There are post surgical or spinal stimulator changes along the posterior soft tissues at L3-L4 disc level. Minimal bilateral lower lobe basilar patchy opacity, ? Infiltrate versus compressive atelectasis. Results were discussed with Dr. Delatorre by phone at 1:45 PM
[2020-01-12 11:13] VITALS: BP 127/74; PULSE 78; RESP 16; TEMP 36.6; O2SAT 98
[2020-01-12 11:18] VITALS: BP 115/63; PULSE 69; RESP 16; O2SAT 98
[2020-01-12 11:23] VITALS: BP 108/65; PULSE 64; RESP 16; O2SAT 98
[2020-01-12 11:28] VITALS: BP 111/67; PULSE 64; RESP 16; O2SAT 96
[2020-01-12 11:42] VITALS: BP 108/72; PULSE 78; RESP 20; TEMP 36.6; O2SAT 98
== END 2020-01-12 12:21 | disposition home or self-care (01) ==
LOC: HO.SSS 08:34
PROVIDERS: Visit Provider Anesthesiology
DX: G06.2 Extradural and subdural abscess, unspecified (principal); T85.733A Infection and inflammatory reaction due to implanted electronic neurostimulator of spinal cord, electrode (lead), initial encounter; M96.1 Postlaminectomy syndrome, not elsewhere classified; J45.909 Unspecified asthma, uncomplicated; Z88.8 Allergy status to other drugs, medicaments and biological substances
CPT/HCPCS: 36415; 72157; 80048; 82550; 85025; 85652; A9585; J2250

== ENCOUNTER 2020-01-17 11:54 | Outpatient (REF) | payer OTHER, SELFPAY ==
[2020-01-17 12:04] LABS: MANUAL DIFF FLAG NO
[2020-01-17 12:12] LABS: Basophils Absolute Auto 0.1 X10*3/uL (0.0-0.2); Basophils Percent Auto 1.3 % (0-2); Eosinophils Absolute Auto 0.4 X10*3/uL (0.0-0.4); Eosinophils Percent Auto 8.2 % (0-4); Hematocrit 42.2 % (42-52); Hemoglobin 14.7 g/dl (14.0-18.0); Imm Gran Abs Auto 0.01 X10*3/uL (0.00-0.03); Imm Gran Pct Auto 0.2 % (0.0-0.4); Lymphocytes Absolute Auto 1.5 X10*3/uL (1.2-4.9); Lymphocytes Percent Auto 27.5 % (20-40); Mean Corpuscular HGB Conc 34.8 g/dl (31.0-36.0); Mean Corpuscular Hemoglobin 30.8 pg (27.0-33.0); Mean Corpuscular Volume 88.5 fL (80-98); Mean Platelet Volume 10.7 fL (9.4-12.4); Monocytes Absolute Auto 0.5 X10*3/uL (0.1-1.2); Monocytes Percent Auto 10.2 % (2-11); Neutrophils Absolute Auto 2.8 X10*3/uL (2.0-8.3); Neutrophils Percent Auto 52.6 % (45-73); Platelet Count 261 X10*3/uL (160-400); Red Blood Count 4.77 X10*6/uL (4.60-5.80); Red Cell Distribution Width 11.5 % (11.0-16.0); White Blood Count 5.3 X10*3/uL (4.8-10.8)
[2020-01-17 12:49] LABS: Anion Gap 15 (12-20); Blood Urea Nitrogen 21 mg/dL (9-16); Calcium 9.2 mg/dL (8.4-10.2); Carbon Dioxide 22 mmol/L (22-29); Chloride 106 mmol/L (96-108); Estimated Glomerular Filt Rate > 60; Glucose Random 111 mg/dL (60-115); Potassium 4.2 mmol/l (3.3-5.1); Sodium 139 mmol/L (135-145)
[2020-01-17 13:03] LABS: Erythrocyte Sedimentation Rate 8 MM/HR (0-15)
== END 2020-01-17 11:55 | disposition home or self-care (01) ==
LOC: HO.HVNA 11:54
PROVIDERS: Visit Provider Nurse Practitioner Family
DX: R29.898 Other symptoms and signs involving the musculoskeletal system (principal); T14.8XXA Other injury of unspecified body region, initial encounter; T85.733D Infection and inflammatory reaction due to implanted electronic neurostimulator of spinal cord, electrode (lead), subsequent encounter; L08.9 Local infection of the skin and subcutaneous tissue, unspecified; B95.61 Methicillin susceptible Staphylococcus aureus infection as the cause of diseases classified elsewhere
CPT/HCPCS: 36415; 80048; 82550; 85025; 85652; 99212

== ENCOUNTER 2020-01-24 13:49 | Outpatient (REF) | payer OTHER, SELFPAY ==
--- NOTE | 2020-01-27 09:58 | HO.PICC ---
PICC Line Insertion PICC removal No Longer needed 01/24/2020 42CM intact single lumen PICC line removed from right upper arm. Insertion site clean, dry and intact. No bleeding noted. Xeroform, 2X2 gauze and tegaderm applied.
== END 2020-01-24 13:50 | disposition home or self-care (01) ==
LOC: HO.RADIR 13:49
PROVIDERS: Visit Provider Anesthesiology
DX: Z13.89 Encounter for screening for other disorder (principal)

== ENCOUNTER 2020-02-16 10:26 | Outpatient (REF) | payer OTHER, SELFPAY ==
--- NOTE | 2020-02-16 | XR_ITS ---
EXAMINATION: XR LUMBOSACRAL SPINE BENDING FILMS ONLY CLINICAL INFORMATION: Assess for instability. History discitis/osteomyelitis. COMPARISON: Lateral bending lumbosacral spine 02/22/2019, CT lumbar spine noncontrast 12/21/2019 TECHNIQUE: Lateral views lumbar spine in standing extension and standing flexion. There are 2 views. FINDINGS: The vertebral bodies are normal in height. There is no lumbar vertebral compression or destructive process. No interval disc narrowing or endplate erosive changes. Range of motion is greater activity extension than flexion, similar to prior exam. There is no spondylolisthesis or retrolisthesis. No instability. XR/XR lumbar spine bending only IMPRESSION: No instability with flexion or extension.
[2020-02-16 14:20] LABS: MANUAL DIFF FLAG NO
[2020-02-16 14:26] LABS: Basophils Absolute Auto 0.1 X10*3/uL (0.0-0.2); Basophils Percent Auto 0.9 % (0-2); Eosinophils Absolute Auto 0.1 X10*3/uL (0.0-0.4); Eosinophils Percent Auto 1.7 % (0-4); Hematocrit 45.5 % (42-52); Hemoglobin 15.9 g/dl (14.0-18.0); Imm Gran Abs Auto 0.02 X10*3/uL (0.00-0.03); Imm Gran Pct Auto 0.3 % (0.0-0.4); Lymphocytes Absolute Auto 1.7 X10*3/uL (1.2-4.9); Mean Corpuscular HGB Conc 34.9 g/dl (31.0-36.0); Mean Corpuscular Volume 88.7 fL (80-98); Mean Platelet Volume 10.9 fL (9.4-12.4); Monocytes Absolute Auto 0.6 X10*3/uL (0.1-1.2); Monocytes Percent Auto 8.2 % (2-11); Neutrophils Percent Auto 65.9 % (45-73); Platelet Count 226 X10*3/uL (160-400); Red Blood Count 5.13 X10*6/uL (4.60-5.80); Red Cell Distribution Width 11.8 % (11.0-16.0); White Blood Count 7.5 X10*3/uL (4.8-10.8)
[2020-02-16 14:37] LABS: Anion Gap 15 (12-20); Blood Urea Nitrogen 21 mg/dL (9-16); C Reactive Protein 0.19 mg/dL (< or = 0.50); Calcium 9.3 mg/dL (8.4-10.2); Carbon Dioxide 25 mmol/L (22-29); Chloride 106 mmol/L (96-108); Estimated Glomerular Filt Rate > 60; Glucose Random 97 mg/dL (60-115); Potassium 3.7 mmol/l (3.3-5.1); Sodium 142 mmol/L (135-145)
[2020-02-16 15:10] LABS: Erythrocyte Sedimentation Rate 2 MM/HR (0-15)
== END 2020-02-16 10:27 | disposition home or self-care (01) ==
LOC: HO.HMGCX 10:26
PROVIDERS: PCP Nurse Practitioner Family; Visit Provider Family Medicine
DX: T85.733A Infection and inflammatory reaction due to implanted electronic neurostimulator of spinal cord, electrode (lead), initial encounter (principal); M54.5 Low back pain
CPT/HCPCS: 36415; 72120; 80048; 82550; 85025; 85652; 86140

== ENCOUNTER 2020-02-29 14:35 | Outpatient (REF) | payer OTHER, SELFPAY ==
[2020-02-29 16:34] LABS: MANUAL DIFF FLAG NO
[2020-02-29 16:38] LABS: Basophils Absolute Auto 0.1 X10*3/uL (0.0-0.2); Basophils Percent Auto 0.8 % (0-2); Eosinophils Absolute Auto 0.3 X10*3/uL (0.0-0.4); Eosinophils Percent Auto 3.4 % (0-4); Hematocrit 42.6 % (42-52); Hemoglobin 14.7 g/dl (14.0-18.0); Imm Gran Abs Auto 0.03 X10*3/uL (0.00-0.03); Imm Gran Pct Auto 0.4 % (0.0-0.4); Lymphocytes Absolute Auto 1.8 X10*3/uL (1.2-4.9); Lymphocytes Percent Auto 21.9 % (20-40); Mean Corpuscular HGB Conc 34.5 g/dl (31.0-36.0); Mean Corpuscular Hemoglobin 30.6 pg (27.0-33.0); Mean Corpuscular Volume 88.8 fL (80-98); Mean Platelet Volume 10.8 fL (9.4-12.4); Monocytes Absolute Auto 0.6 X10*3/uL (0.1-1.2); Monocytes Percent Auto 7.2 % (2-11); Neutrophils Absolute Auto 5.5 X10*3/uL (2.0-8.3); Neutrophils Percent Auto 66.3 % (45-73); Platelet Count 248 X10*3/uL (160-400); Red Cell Distribution Width 11.9 % (11.0-16.0); White Blood Count 8.3 X10*3/uL (4.8-10.8)
[2020-02-29 16:51] LABS: Anion Gap 12 (12-20); Blood Urea Nitrogen 14 mg/dL (9-16); Calcium 9.2 mg/dL (8.4-10.2); Carbon Dioxide 28 mmol/L (22-29); Chloride 105 mmol/L (96-108); Estimated Glomerular Filt Rate > 60; Glucose Random 92 mg/dL (60-115); Potassium 4.7 mmol/l (3.3-5.1); Sodium 140 mmol/L (135-145)
== END 2020-02-29 14:36 | disposition home or self-care (01) ==
LOC: HO.HMGCLDS 14:35
PROVIDERS: PCP Nurse Practitioner Family; Visit Provider Internal Medicine
DX: R10.31 Right lower quadrant pain (principal)
CPT/HCPCS: 36415; 80048; 85025

== ENCOUNTER 2020-03-07 08:15 | Outpatient (REF) | payer OTHER, SELFPAY ==
--- NOTE | 2020-03-07 08:17 | CT_ITS ---
EXAMINATION: CT ABDOMEN AND PELVIS WITH CONTRAST CLINICAL INFORMATION: Right lower quadrant pain COMPARISON: Previous CT of the abdomen and pelvis August 2017 TECHNIQUE: Multidetector volumetric images were obtained from the superior aspect of the liver through the pubic symphysis following administration 85 mL of Omnipaque 350 intravenous contrast. Sagittal and coronal reformatted images were obtained on the technologist's workstation. Oral contrast: Yes This CT examination was performed using dose optimization techniques as appropriate, variously including the following: *Automated exposure control *Adjustment of mA and/or kV according to patient size (this includes techniques or standardized protocols for targeted exams where dose is matched to indication/reason for exam; i.e. extremities or head) *Use of iterative reconstruction technique DLP: 594 mGy-cm FINDINGS: LUNG BASES: The visualized lung bases are unremarkable. LIVER, GALLBLADDER, AND BILIARY TREE: The liver is normal in size, shape, and attenuation. No focal hepatic lesion or biliary ductal dilatation is present. The gallbladder is unremarkable with no evidence of radiopaque gallstones, gallbladder wall thickening, or obvious pericholecystic inflammatory changes. PANCREAS: Unremarkable. SPLEEN: Slightly enlarged measuring 14 cm in length. This is unchanged from 2018 exam. No focal splenic lesion. ADRENAL GLANDS: Unremarkable. KIDNEYS AND URETERS: The kidneys are normal in size, shape, and attenuation. No hydronephrosis, hydroureter, or calculi seen. No perinephric stranding. BLADDER: Unremarkable. GASTROINTESTINAL TRACT: The small and large bowel are unremarkable. The appendix as been removed. The stomach is unremarkable. ABDOMINAL WALL: No significant hernia is appreciated. LYMPH NODES: Normal. VASCULAR: Unremarkable. PELVIC VISCERA: Unremarkable. OSSEOUS STRUCTURES: Unremarkable. CT/CT abdomen pelvis w con IMPRESSION: Mild stable splenomegaly similar to 2018 otherwise unremarkable exam.
[2020-03-07] MEDS: iohexoL 350 MG/ML 100 ML INFUS..BTL 85 ML IV (10:28)
[2020-03-07] MEDS: Barium Sulfate Oral (Berry) 450 ML ORAL.SUSP 900 ML PO (10:29)
== END 2020-03-07 08:16 | disposition home or self-care (01) ==
LOC: HO.CT 08:15
PROVIDERS: PCP Nurse Practitioner Family; Visit Provider Internal Medicine
DX: R10.31 Right lower quadrant pain (principal)
CPT/HCPCS: 74177; Q9967

== ENCOUNTER → 2020-03-15 09:40 | Outpatient (BNVA) | payer OTHER, SELFPAY | PROVIDERS: PCP Nurse Practitioner Family; Visit Provider Urology | DX: Z76.89 Persons encountering health services in other specified circumstances (principal) ==

== ENCOUNTER → 2020-03-29 13:34 | Outpatient (BNVA) | payer OTHER, SELFPAY | PROVIDERS: PCP Internal Medicine; Visit Provider Urology | DX: R10.31 Right lower quadrant pain (principal) | CPT/HCPCS: 20552; 99212 ==